=== PATIENT | male | born 1965 | race Caucasian/White ===

== ENCOUNTER 2016-12-10 18:37 | Emergency (ER) | payer MEDICARE ==
[~2016-12-10] VITALS: Ht 185.4 cm; Wt 93.6 kg
[~2016-12-10 18:37] MED LIST: KEPP10002 PO; LAMO150 PO; LORA1TAB12 PO
[2016-12-10 18:38] VITALS: BP 116/75; PULSE 96; RESP 24; TEMP 98.5; O2SAT 99
[2016-12-10] MEDS ORDERED: LORazepam 2 MG/ML VIAL IV PUSH ONE (23:00)
[2016-12-10] MEDS ORDERED: TETANUS/DIPHTHERIA TOXOID ADULT 0.5 ML VIAL IM ONE (23:00)
[2016-12-10] MEDS ORDERED: SODIUM CHLOR 0.9% 1000 ML INJ 1,000 ML IV ONE (23:00)
--- NOTE | 2016-12-10 23:19 | PD ---
HPI Chief Complaint: Injury Time Seen by Provider: 22:43 Travel History International Travel<30 days: No Contact w/Intl Traveler<30days: No Traveled to known affect area: No History of Present Illness HPI The patient is a 51-year-old male who presents to the emergency department for alcohol detoxification right ankle pain. The patient states he has a history of chronic alcohol use, started drinking once again on November 17. The patient states he is followed down several times and struck his head , nose, and chin. He also states he was walking on wet tile and flip flops when he tripped in injured his right lower extremity. The patient has been ambulating on the affected extremity, now notes increasing edema. The patient does note the right foot, right ankle, right lower extremity are swollen and ecchymotic. The patient states he has been through alcohol withdrawal in the past, he would disturb her [facility] (by [facility]), however, they did not have a bed. PFSH Past Medical History Arthritis: Yes Asthma: No Autoimmune Disease: No Blood Disorders: No Anxiety: Yes Depression: Yes Heart Rhythm Problems: No Cancer: No Cardiovascular Problems: Yes High Cholesterol: No Chemotherapy: No Chest Pain: Yes Congestive Heart Failure: No COPD: No Cerebrovascular Accident: No Diabetes: No Diminished Hearing: No Endocrine: No Gastrointestinal Disorders: Yes (CROHN'S DISEASE) GERD: No Genitourinary: No Headaches: Yes Hepatitis: No Hiatal Hernia: No Hypertension: Yes Immune Disorder: No Kidney Stones: No Musculoskeletal: Yes Neurologic: Yes Psychiatric: Yes Reproductive: No Respiratory: No Immunizations Current: Yes Migraines: No Myocardial Infarction: No Radiation Therapy: No Renal Failure: No Seizures: Yes Sleep Apnea: No PNEUMOCCOCAL Vaccine (Year): 2010 Past Surgical History Abdominal Surgery: Yes (INTESTINAL RESECTION X2) AICD: No Appendectomy: Yes Arteriovenous Shunt: No Cholecystectomy: Yes Ear Surgery: No Endocrine Surgery: No Eye Surgery: No Genitourinary Surgery: No Gynecologic Surgery: No Insulin Pump: No Joint Replacement: No Oral Surgery: No Pacemaker: No Thoracic Surgery: No Tonsillectomy: Yes Other Surgery: Yes (gall bladder) Social History Alcohol Use: Yes Tobacco Use: No Substance Use: Yes (States that its always ETOH.) Allergies-Medications (Allergen,Severity, Reaction): Coded Allergies: Iodine (Verified Allergy, Severe, ., 12/10/16) Remicade (Verified Allergy, Severe, 12/10/16) Shellfish (Verified Allergy, Severe, 12/10/16) Reported Meds & Prescriptions Reported Meds & Active Scripts Active Lamictal (Lamotrigine) 150 Mg Tab 150 Mg PO BID Keppra (Levetiracetam) 1,000 Mg Tab 1,000 Mg PO BID Reported Lorazepam 1 Mg Tab 1 Mg PO DAILY PRN Keppra (Levetiracetam) 1,000 Mg Tab 1,000 Mg PO BID Lamictal (Lamotrigine) 150 Mg Tab 150 Mg PO BID Review of Systems Except as stated in HPI: all other systems reviewed are Neg HENT: Positive: Headaches, No: Neck Pain Cardiovascular: No: Chest Pain or Discomfort Respiratory: No: Shortness of Breath Gastrointestinal: No: Nausea, Vomiting, Abdominal Pain Musculoskeletal: No: Edema Neurologic: No: Dizziness Psychiatric: Positive: Substance Abuse (alcohol abuse) Physical Exam Narrative GENERAL: Awake, alert, pleasant 51-year-old male who appears his stated age. SKIN: Focused skin assessment warm/dry. Ecchymosis noted over the chin, nasal bridge, and right lower extremity from the right mid tibia/fibular inferior to the proximal right foot. HEAD: Ecchymosis and contusions noted over the chin, nose, and forehead. EYES: Pupils equal and round. Pupils are 4 mm bilateral reactive. ENT: No nasal bleeding or discharge. Mucous membranes pink and moist. NECK: Trachea midline. No JVD. CARDIOVASCULAR: Regular rate and rhythm. No murmur appreciated. RESPIRATORY: No accessory muscle use. Clear to auscultation. Breath sounds equal bilaterally. GASTROINTESTINAL: Abdomen soft, non-tender, nondistended. No rebound tenderness. MUSCULOSKELETAL: Patient has edema and ecchymosis from the mid to distal one third of the right tibia/fibula down to the proximal right foot with edema of the right foot. Tenderness of the medial malleus. Scar noted on the right upper extremity. Patient is able flex the right hip and right knee. Positive Doppler pulse on the right foot. Patient moves upper extremities without difficulty. NEUROLOGICAL: Awake and alert. No obvious cranial nerve deficits. Motor grossly within normal limits. Normal speech. Nonfocal. Oriented 4. PSYCHIATRIC: Appropriate mood and affect; insight and judgment normal. Data Data Last Documented VS Vital Signs Date Time Temp Pulse Resp B/P Pulse Ox O2 Delivery O2 Flow Rate FiO2 12/10/16 22:40 82 18 93 Room Air 12/10/16 18:38 98.5 116/75 Orders Tibia/Fibula (Ap/Lat) (12/10/16 ) Complete Blood Count With Diff (12/10/16 22:47) Comprehensive Metabolic Panel (12/10/16 22:47) Lorazepam Inj (Ativan Inj) (12/10/16 23:00) Sodium Chlor 0.9% 1000 Ml Inj (Ns 1000 M (12/10/16 23:00) Foot, Limited (2vws) (12/10/16 ) Tetanus/Diphtheria Tox Adult (Tetanus/Di (12/10/16 23:00) Ct Brain W/O Iv Contrast(Rout) (12/10/16 ) Alcohol (Ethanol) (12/10/16 23:19) Us Leg Venous Doppler (12/10/16 ) Clindamycin Inj (Cleocin Inj) (12/11/16 00:45) Labs Laboratory Tests Test 12/10/16 23:00 White Blood Count 9.0 TH/MM3 Red Blood Count 5.88 MIL/MM3 Hemoglobin 11.5 GM/DL Hematocrit 36.3 % Mean Corpuscular Volume 61.7 FL Mean Corpuscular Hemoglobin 19.6 PG Mean Corpuscular Hemoglobin 31.7 % Concent Red Cell Distribution Width 16.5 % Platelet Count 176 TH/MM3 Mean Platelet Volume 8.5 FL Neutrophils (%) (Auto) 75.5 % Lymphocytes (%) (Auto) 16.8 % Monocytes (%) (Auto) 5.3 % Eosinophils (%) (Auto) 1.3 % Basophils (%) (Auto) 1.1 % Neutrophils # (Auto) 6.8 TH/MM3 Lymphocytes # (Auto) 1.5 TH/MM3 Monocytes # (Auto) 0.5 TH/MM3 Eosinophils # (Auto) 0.1 TH/MM3 Basophils # (Auto) 0.1 TH/MM3 CBC Comment AUTO DIFF Sodium Level 140 MEQ/L Potassium Level 4.1 MEQ/L Chloride Level 105 MEQ/L Carbon Dioxide Level 27.0 MEQ/L Anion Gap 8 MEQ/L Blood Urea Nitrogen 6 MG/DL Creatinine 0.74 MG/DL Estimat Glomerular Filtration 111 ML/MIN Rate Random Glucose 73 MG/DL Calcium Level 8.3 MG/DL Total Bilirubin 0.8 MG/DL Aspartate Amino Transf 43 U/L (AST/SGOT) Alanine Aminotransferase 39 U/L (ALT/SGPT) Alkaline Phosphatase 90 U/L Total Protein 7.1 GM/DL Albumin 3.5 GM/DL Ethyl Alcohol Level LESS THAN 3 MG/DL MDM Medical Decision Making Medical Screen Exam Complete: Yes Emergency Medical Condition: Yes Medical Record Reviewed: Yes Interpretation(s) Ultrasound of the leg is negative for DVT, does reveal subcutaneous edema. Last Impressions Tibia/Fibula X-Ray 12/10/16 0000 Signed Impressions: Service Date/Time: Saturday, December 10, 2016 23:27 - CONCLUSION: 1. Soft tissue swelling around the ankle. Drake Ackerman Jr., MD Head CT 12/10/16 0000 Signed Impressions: Service Date/Time: Saturday, December 10, 2016 23:29 - CONCLUSION: 1. No acute intracranial abnormality. 2. Chronic right-sided paranasal sinus disease. Drake Ackerman Jr., MD Foot X-Ray 12/10/16 0000 Signed Impressions: Service Date/Time: Saturday, December 10, 2016 23:27 - CONCLUSION: Unremarkable limited examination of the right foot. Drake Ackerman Jr., MD Laboratory Tests Test 12/10/16 23:00 White Blood Count 9.0 TH/MM3 Red Blood Count 5.88 MIL/MM3 Hemoglobin 11.5 GM/DL Hematocrit 36.3 % Mean Corpuscular Volume 61.7 FL Mean Corpuscular Hemoglobin 19.6 PG Mean Corpuscular Hemoglobin 31.7 % Concent Red Cell Distribution Width 16.5 % Platelet Count 176 TH/MM3 Mean Platelet Volume 8.5 FL Neutrophils (%) (Auto) 75.5 % Lymphocytes (%) (Auto) 16.8 % Monocytes (%) (Auto) 5.3 % Eosinophils (%) (Auto) 1.3 % Basophils (%) (Auto) 1.1 % Neutrophils # (Auto) 6.8 TH/MM3 Lymphocytes # (Auto) 1.5 TH/MM3 Monocytes # (Auto) 0.5 TH/MM3 Eosinophils # (Auto) 0.1 TH/MM3 Basophils # (Auto) 0.1 TH/MM3 CBC Comment AUTO DIFF Sodium Level 140 MEQ/L Potassium Level 4.1 MEQ/L Chloride Level 105 MEQ/L Carbon Dioxide Level 27.0 MEQ/L Anion Gap 8 MEQ/L Blood Urea Nitrogen 6 MG/DL Creatinine 0.74 MG/DL Estimat Glomerular Filtration 111 ML/MIN Rate Random Glucose 73 MG/DL Calcium Level 8.3 MG/DL Total Bilirubin 0.8 MG/DL Aspartate Amino Transf 43 U/L (AST/SGOT) Alanine Aminotransferase 39 U/L (ALT/SGPT) Alkaline Phosphatase 90 U/L Total Protein 7.1 GM/DL Albumin 3.5 GM/DL Ethyl Alcohol Level LESS THAN 3 MG/DL Differential Diagnosis Differential diagnosis includes alcohol withdrawal, alcohol intoxication, hyponatremia, fracture, dislocation, contusion, hematoma, DVT. Narrative Course IV was established, labs are drawn and sent, and the patient was placed on cardiac telemetry monitoring and continuous pulse oximetry monitoring. CT of the brain was obtained. X-ray the right tibia/fibula and right foot were obtained. Patient was administered Ativan 1 mg intravenously and 1 L of IV fluids. CT of the brain is negative for acute hemorrhage. X-rays are negative for fracture. Ultrasound is negative for DVT, does reveal subcutaneous edema. Therefore, patient will be treated for cellulitis with clindamycin. He will also be placed on Librium for alcohol withdrawal. He is advised elevate the leg as needed and a follow-up with a primary physician. Diagnosis Primary Impression: Cellulitis of right leg Additional Impression: Alcohol withdrawal Qualified Code: F10.230 - Alcohol withdrawal, uncomplicated Patient Instructions: General Instructions Additional Instructions: Medications as directed. Elevate right leg. No Ativan while on Librium. Follow-up at [facility]. Follow-up with a primary physician. Stop drinking alcohol. Med/Other Pt SpecificInfo: Prescription(s) given, Med Stopped (do not take Ativan while on Librium) Scripts Chlordiazepoxide 25 Mg Cap25 Mg PO DIRECTED #20 CAP Ref 0 Prov:Jos Dumont MD 12/11/16 Clindamycin (Cleocin)150 Mg Eal305 Mg PO Q6H 10 Days Ref 0 Prov:Jos Dumont MD 12/11/16 Disposition: 01 DISCHARGE HOME Condition: Stable Jos Dumont MD Dec 10, 2016 23:18
[2016-12-10 23:36] LABS: ALKALINE PHOSPHATASE 90 U/L (45-117); ALT (GPT) 39 U/L (12-78); ANION GAP 8 MEQ/L (5-15); AST (GOT) 43 U/L (15-37); BLOOD UREA NITROGEN 6 MG/DL (7-18); CHLORIDE 105 MEQ/L (98-107); GLOMERULAR FILTRATION RATE 111 ML/MIN (>89); POTASSIUM 4.1 MEQ/L (3.5-5.1); SODIUM (NA) 140 MEQ/L (136-145); TOTAL BILIRUBIN ADULT 0.8 MG/DL (0.2-1.0)
[2016-12-10 23:38] LABS: AUTOMATED NEUTROPHIL # 6.8 TH/MM3 (1.8-7.7); BASOPHIL # 0.1 TH/MM3 (0-0.2); BASOPHIL % 1.1 % (0.0-2.0); EOSINOPHIL # 0.1 TH/MM3 (0-0.4); EOSINOPHIL % 1.3 % (0.0-4.0); HEMATOCRIT 36.3 % (39.0-51.0); LYMPH % 16.8 % (9.0-44.0); LYMPHOCYTE # 1.5 TH/MM3 (1.0-4.8); MEAN CELL VOLUME 61.7 FL (80.0-100.0); MEAN CORPUSCULAR HEMOGLOBIN 19.6 PG (27.0-34.0); MEAN CORPUSCULAR HGB CONC 31.7 % (32.0-36.0); MONO % 5.3 % (0.0-8.0); NEUT % 75.5 % (16.0-70.0); PLATELET COUNT 176 TH/MM3 (150-450); RED BLOOD COUNT 5.88 MIL/MM3 (4.50-5.90); RED CELL DISTRIBUTION WIDTH 16.5 % (11.6-17.2)
[2016-12-10 23:49] LABS: HEMO FLAGS AUTO DIFF
--- NOTE | 2016-12-10 23:54 | RADRPT ---
EXAM DATE/TIME: 12/10/2016 23:29 [facility] COMPARISON: CT BRAIN W/O CONTRAST, February 01, 2015, 17:10. INDICATIONS : Detox along with falling one month ago. RADIATION DOSE: 56.35 CTDIvol (mGy) MEDICAL HISTORY : Seizures. Hypertension. SURGICAL HISTORY : None. ENCOUNTER: Initial ACUITY: 1 day PAIN SCALE: 3/10 LOCATION: cranial TECHNIQUE: Multiple contiguous axial images were obtained of the head. Using automated exposure control and adj ustment of the mA and/or kV according to patient size, radiation dose was kept as low as reasonably a chievable to obtain optimal diagnostic quality images. FINDINGS: CEREBRUM: There remains mild prominence of the right lateral ventricle. This is stable from the prior exam. The remaining ventricles are unremarkable. No evidence of midline shift, mass lesion, hemorrhage or acut e infarction. No extra-axial fluid collections are seen. POSTERIOR FOSSA: The cerebellum and brainstem are intact. The 4th ventricle is midline. The cerebellopontine angle i s unremarkable. EXTRACRANIAL: The visualized portion of the orbits is intact. Mucosal thickening is seen involving the right fronta l sinus, right ethmoid air cells, and right maxillary sinus. SKULL: The calvaria is intact. No evidence of skull fracture. CONCLUSION: 1. No acute intracranial abnormality. 2. Chronic right-sided paranasal sinus disease. Drake Ackerman Jr., MD on December 10, 2016 at 23:49 Board Certified Radiologist. This report was verified electronically.
--- NOTE | 2016-12-11 00:05 | RADRPT ---
EXAM DATE/TIME: 12/10/2016 23:27 [facility] COMPARISON: No previous studies available for comparison. INDICATIONS : Pain, swelling, and bruising of the right lower extremity from trauma one week ago MEDICAL HISTORY : None. SURGICAL HISTORY : None. ENCOUNTER: Initial ACUITY: 1 week PAIN SCORE: 8/10 LOCATION: Right leg FINDINGS: Two view examination of the right foot demonstrates no soft tissue swelling, dislocation, or fracture . The calcaneus is intact. Bony mineralization is normal. CONCLUSION: Unremarkable limited examination of the right foot. Drake Ackerman Jr., MD on December 11, 2016 at 0:04 Board Certified Radiologist. This report was verified electronically.
--- NOTE | 2016-12-11 00:05 | RADRPT ---
EXAM DATE/TIME: 12/10/2016 23:27 [facility] COMPARISON: No previous studies available for comparison. INDICATIONS : Pain, swelling, and bruising of the right lower extremity from trauma one week ago. MEDICAL HISTORY : None. SURGICAL HISTORY : None. ENCOUNTER: Initial ACUITY: 1 week PAIN SCORE: 8/10 LOCATION: Right leg FINDINGS: Multiple views of the right lower leg show a medial hemiarthroplasty. There is soft tissue swelling s urrounding the ankle. No fractures or dislocations. No radiopaque foreign bodies. CONCLUSION: 1. Soft tissue swelling around the ankle. Drake Ackerman Jr., MD on December 11, 2016 at 0:02 Board Certified Radiologist. This report was verified electronically.
--- NOTE | 2016-12-11 00:30 | RADRPT ---
EXAM DATE/TIME: 12/10/2016 23:55 [facility] COMPARISON: No previous studies available for comparison. INDICATIONS : Right leg edema and pain. MEDICAL HISTORY : Hypertension. Crohn's disease. Arthritis. Seizures. Head trauma. Chest pain. Depression. Anxiety. Substance use. SURGICAL HISTORY : Tonsillectomy. Appendectomy. Cholecystectomy. Intestinal resection x2. Right knee surgery. Blood tra nsfusions. ENCOUNTER: Initial ACUITY: 2 weeks PAIN SCORE: 10/10 LOCATION: Right leg. TECHNIQUE: Venous ultrasound of the leg was performed from the inguinal ligament to the proximal calf. Real- e, color Doppler and spectral tracing, compression and augmentation techniques were used. FINDINGS: There is normal compressibility of the deep venous system from the inguinal region to the proximal ca lf. No echogenic clot is seen in the lumen of the common femoral, femoral, popliteal, and posterior tibial veins. There is a normal response of the venous system to proximal and distal augmentation an d respiration. Edema is seen within the subcutaneous tissues. CONCLUSION: 1. No DVT. 2. Subcutaneous edema. Drake Ackerman Jr., MD on December 11, 2016 at 0:28 Board Certified Radiologist. This report was verified electronically.
[2016-12-11] MEDS ORDERED: CLIN150 PO (00:39)
[2016-12-11] MEDS ORDERED: CHLO25CA2 PO (00:39)
[2016-12-11] MEDS ORDERED: CLINDAMYCIN INJ 600 MG in SODIUM CHLORIDE 0.9% INJ 100 ML IV ONE (00:45)
[2016-12-11] MEDS ORDERED: KETOROLAC TROMETHAMINE 30 MG/ML (IVP) VIAL IV PUSH ONE (00:45)
[2016-12-11 02:01] LABS: SCAN/DIFF AUTO DIFF CONFIRMED
[2016-12-11 02:02] LABS: ACANTHOCYTES OCC (NORMAL); OVALOCYTES 1+ (NORMAL)
[2016-12-11 02:03] LABS: SPHEROCYTES OCC (NORMAL)
[2016-12-11 05:39] VITALS: BP 135/70; TEMP 98.3
== END 2016-12-11 05:43 | disposition home or self-care (01) ==
LOC: NEPD 18:37
DX: L03.115 Cellulitis of right lower limb (principal); F10.230 Alcohol dependence with withdrawal, uncomplicated; R60.0 Localized edema; I10 Essential (primary) hypertension; Z87.39 Personal history of other diseases of the musculoskeletal system and connective tissue; Z86.59 Personal history of other mental and behavioral disorders; Z86.79 Personal history of other diseases of the circulatory system; Z87.19 Personal history of other diseases of the digestive system; Z86.69 Personal history of other diseases of the nervous system and sense organs; W01.0XXA Fall on same level from slipping, tripping and stumbling without subsequent striking against object, initial encounter
CPT/HCPCS: 70450; 73590; 73620; 80053; 80307; 85025; 90471; 90714; 93971; 96361; 96365; 96366; 96375; 99284; J1885; J2060; J7030

== ENCOUNTER 2017-02-02 03:15 | Emergency (ER) | payer MEDICARE ==
[~2017-02-02] VITALS: Ht 172.7 cm; Wt 85.0 kg
[~2017-02-02 03:15] MED LIST changes: +CHLO25CA2 PO; +CLIN150 PO
[2017-02-02] MEDS ORDERED: SODIUM CHLOR 0.9% 1000 ML INJ 1,000 ML IV SCH (03:22)
[2017-02-02 03:24] VITALS: BP 119/69; PULSE 88; RESP 20; TEMP 98.2; O2SAT 99
--- NOTE | 2017-02-02 03:29 | PD ---
HPI Chief Complaint: Abdominal Pain Time Seen by Provider: 03:18 Travel History International Travel<30 days: No Contact w/Intl Traveler<30days: No Traveled to known affect area: No History of Present Illness HPI The patient is a 51-year-old male who presents emergency department for abdominal pain. The patient was drinking alcohol earlier today, beer, when he developed abdominal pain. The abdominal pain is diffuse, intermittent, sharp , crampy. The patient does have a history of previous Crohn's disease with multiple open laparotomies a previous cholecystectomy and appendectomy. The patient appears intoxicated is a somewhat poor historian, but denies any nausea , vomiting, or change in bowel habits. The patient called EMS earlier today, when EMS arrived they stated the patient was somewhat altered. The patient repetitively says "I'm sorry ". No further information is obtainable from the patient. PFSH Past Medical History Arthritis: Yes Asthma: No Autoimmune Disease: No Blood Disorders: No Anxiety: Yes Depression: Yes Heart Rhythm Problems: No Cancer: No Cardiovascular Problems: Yes High Cholesterol: No Chemotherapy: No Chest Pain: Yes Congestive Heart Failure: No COPD: No Cerebrovascular Accident: No Diabetes: No Diminished Hearing: No Endocrine: No Gastrointestinal Disorders: Yes (CROHN'S DISEASE) GERD: No Genitourinary: No Headaches: Yes Hepatitis: No Hiatal Hernia: No Hypertension: Yes Immune Disorder: No Kidney Stones: No Musculoskeletal: Yes Neurologic: Yes Psychiatric: Yes Reproductive: No Respiratory: No Immunizations Current: Yes Migraines: No Myocardial Infarction: No Radiation Therapy: No Renal Failure: No Seizures: Yes Sleep Apnea: No PNEUMOCCOCAL Vaccine (Year): 2010 Past Surgical History Abdominal Surgery: Yes (INTESTINAL RESECTION X2) AICD: No Appendectomy: Yes Arteriovenous Shunt: No Cholecystectomy: Yes Ear Surgery: No Endocrine Surgery: No Eye Surgery: No Genitourinary Surgery: No Gynecologic Surgery: No Insulin Pump: No Joint Replacement: No Oral Surgery: No Pacemaker: No Thoracic Surgery: No Tonsillectomy: Yes Other Surgery: Yes (gall bladder) Social History Alcohol Use: Yes (DAILY) Tobacco Use: No Substance Use: No Allergies-Medications (Allergen,Severity, Reaction): Coded Allergies: Iodine (Verified Allergy, Severe, ., 02/02/17) Remicade (Verified Allergy, Severe, 02/02/17) Shellfish (Verified Allergy, Severe, 02/02/17) Reported Meds & Prescriptions Reported Meds & Active Scripts Active Chlordiazepoxide (Chlordiazepoxide HCl) 25 Mg Cap 25 Mg PO DIRECTED Cleocin (Clindamycin HCl) 150 Mg Cap 150 Mg PO Q6H 10 Days Lamictal (Lamotrigine) 150 Mg Tab 150 Mg PO BID Keppra (Levetiracetam) 1,000 Mg Tab 1,000 Mg PO BID Reported Lorazepam 1 Mg Tab 1 Mg PO DAILY PRN Keppra (Levetiracetam) 1,000 Mg Tab 1,000 Mg PO BID Lamictal (Lamotrigine) 150 Mg Tab 150 Mg PO BID Review of Systems Except as stated in HPI: all other systems reviewed are Neg General / Constitutional: No: Fever Cardiovascular: No: Chest Pain or Discomfort Respiratory: No: Shortness of Breath Gastrointestinal: Positive: Abdominal Pain, No: Nausea, Vomiting, Diarrhea Genitourinary: No: Dysuria Musculoskeletal: No: Weakness Psychiatric: Positive: Substance Abuse (alcohol abuse) Physical Exam Narrative GENERAL: Awake, alert, 51-year-old male who appears his stated age and appears be intoxicated. SKIN: Focused skin assessment warm/dry. HEAD: Atraumatic. Normocephalic. EYES: Pupils equal and round. No injection. ENT: No nasal bleeding or discharge. Mucous membranes pink and moist. NECK: Trachea midline. No JVD. CARDIOVASCULAR: Regular rate and rhythm. No murmur appreciated. Heart rate in the 90s. RESPIRATORY: No accessory muscle use. Clear to auscultation. Breath sounds equal bilaterally. GASTROINTESTINAL: Abdomen soft, well-healed midline abdominal incisional scar. When patient has attacks of pain and sits upright, it appears he has a large diastases and left hernia. MUSCULOSKELETAL: No obvious deformities. No clubbing. No cyanosis. No edema. NEUROLOGICAL: Awake and alert. No obvious cranial nerve deficits. Motor grossly within normal limits. Normal speech. PSYCHIATRIC: Appears intoxicated. Data Data Last Documented VS Vital Signs Date Time Temp Pulse Resp B/P Pulse Ox O2 Delivery O2 Flow Rate FiO2 02/02/17 03:46 88 20 119/69 99 02/02/17 03:24 98.2 Orders Complete Blood Count With Diff (02/02/17 03:22) Comprehensive Metabolic Panel (02/02/17 03:22) Lipase (02/02/17 03:22) Lactic Acid (02/02/17 03:22) Urinalysis - C+S If Indicated (02/02/17 03:22) Ct Abd/Pel W/O Iv Contrast (02/02/17 03:22) Iv Access Insert/Monitor (02/02/17 03:22) Ecg Monitoring (02/02/17 03:22) Oximetry (02/02/17 03:22) Morphine Inj (Morphine Inj) (02/02/17 03:30) Ondansetron Inj (Zofran Inj) (02/02/17 03:30) Sodium Chlor 0.9% 1000 Ml Inj (Ns 1000 M (02/02/17 03:22) Sodium Chloride 0.9% Flush (Ns Flush) (02/02/17 03:30) Alcohol (Ethanol) (02/02/17 03:22) Acetamin-Hydrocod 325-5 Mg ([place] 5-325 (02/02/17 08:15) Naproxen (Naprosyn) (02/02/17 08:15) Labs Laboratory Tests Test 02/02/17 03:20 White Blood Count 7.8 TH/MM3 Red Blood Count 6.19 MIL/MM3 Hemoglobin 12.0 GM/DL Hematocrit 38.7 % Mean Corpuscular Volume 62.6 FL Mean Corpuscular Hemoglobin 19.4 PG Mean Corpuscular Hemoglobin 31.0 % Concent Red Cell Distribution Width 17.1 % Platelet Count 274 TH/MM3 Mean Platelet Volume 7.7 FL Neutrophils (%) (Auto) 61.6 % Lymphocytes (%) (Auto) 31.1 % Monocytes (%) (Auto) 5.0 % Eosinophils (%) (Auto) 1.4 % Basophils (%) (Auto) 0.9 % Neutrophils # (Auto) 4.8 TH/MM3 Lymphocytes # (Auto) 2.4 TH/MM3 Monocytes # (Auto) 0.4 TH/MM3 Eosinophils # (Auto) 0.1 TH/MM3 Basophils # (Auto) 0.1 TH/MM3 CBC Comment DIFF FINAL Differential Comment Urine Color LIGHT-YELLOW Urine Turbidity CLEAR Urine pH 6.0 Urine Specific [place] 1.003 Urine Protein NEG mg/dL Urine Glucose (UA) NEG mg/dL Urine Ketones NEG mg/dL Urine Occult Blood NEG Urine Nitrite NEG Urine Bilirubin NEG Urine Urobilinogen LESS THAN 2.0 MG/DL Urine Leukocyte Esterase NEG Urine Mucus FEW /lpf Microscopic Urinalysis Comment CULT NOT INDICATED Sodium Level 148 MEQ/L Potassium Level 3.8 MEQ/L Chloride Level 113 MEQ/L Carbon Dioxide Level 23.0 MEQ/L Anion Gap 12 MEQ/L Blood Urea Nitrogen 6 MG/DL Creatinine 0.92 MG/DL Estimat Glomerular Filtration 86 ML/MIN Rate Random Glucose 77 MG/DL Lactic Acid Level 2.4 mmol/L Calcium Level 8.1 MG/DL Total Bilirubin 0.1 MG/DL Aspartate Amino Transf 38 U/L (AST/SGOT) Alanine Aminotransferase 33 U/L (ALT/SGPT) Alkaline Phosphatase 96 U/L Total Protein 7.3 GM/DL Albumin 3.6 GM/DL Lipase 119 U/L Ethyl Alcohol Level 371 MG/DL [facility] Medical Decision Making Medical Screen Exam Complete: Yes Emergency Medical Condition: Yes Medical Record Reviewed: Yes Interpretation(s) Laboratory Tests Test 02/02/17 03:20 White Blood Count 7.8 TH/MM3 Red Blood Count 6.19 MIL/MM3 Hemoglobin 12.0 GM/DL Hematocrit 38.7 % Mean Corpuscular Volume 62.6 FL Mean Corpuscular Hemoglobin 19.4 PG Mean Corpuscular Hemoglobin 31.0 % Concent Red Cell Distribution Width 17.1 % Platelet Count 274 TH/MM3 Mean Platelet Volume 7.7 FL Neutrophils (%) (Auto) 61.6 % Lymphocytes (%) (Auto) 31.1 % Monocytes (%) (Auto) 5.0 % Eosinophils (%) (Auto) 1.4 % Basophils (%) (Auto) 0.9 % Neutrophils # (Auto) 4.8 TH/MM3 Lymphocytes # (Auto) 2.4 TH/MM3 Monocytes # (Auto) 0.4 TH/MM3 Eosinophils # (Auto) 0.1 TH/MM3 Basophils # (Auto) 0.1 TH/MM3 CBC Comment DIFF FINAL Differential Comment Urine Color LIGHT-YELLOW Urine Turbidity CLEAR Urine pH 6.0 Urine Specific [place] 1.003 Urine Protein NEG mg/dL Urine Glucose (UA) NEG mg/dL Urine Ketones NEG mg/dL Urine Occult Blood NEG Urine Nitrite NEG Urine Bilirubin NEG Urine Urobilinogen LESS THAN 2.0 MG/DL Urine Leukocyte Esterase NEG Urine Mucus FEW /lpf Microscopic Urinalysis Comment CULT NOT INDICATED Sodium Level 148 MEQ/L Potassium Level 3.8 MEQ/L Chloride Level 113 MEQ/L Carbon Dioxide Level 23.0 MEQ/L Anion Gap 12 MEQ/L Blood Urea Nitrogen 6 MG/DL Creatinine 0.92 MG/DL Estimat Glomerular Filtration 86 ML/MIN Rate Random Glucose 77 MG/DL Lactic Acid Level 2.4 mmol/L Calcium Level 8.1 MG/DL Total Bilirubin 0.1 MG/DL Aspartate Amino Transf 38 U/L (AST/SGOT) Alanine Aminotransferase 33 U/L (ALT/SGPT) Alkaline Phosphatase 96 U/L Total Protein 7.3 GM/DL Albumin 3.6 GM/DL Lipase 119 U/L Ethyl Alcohol Level 371 MG/DL Last Impressions Abdomen/Pelvis CT 02/02/17 0322 Signed Impressions: Service Date/Time: Thursday, February 02, 2017 04:03 - CONCLUSION: Mild distention of small bowel up to the distal most ileum. Mild mesenteric isatu enlargement. Tristen Abreu MD Differential Diagnosis Differential diagnoses includes pancreatitis, gastritis, peptic ulcer disease, volvulus, partial small bowel obstruction, incarcerated hernia. Narrative Course IV was established, labs are drawn and sent, and the patient was placed on cardiac telemetry monitoring and continuous pulse oximetry monitoring. The patient was assistant professor of business morphine, Zofran, and IV fluids. Lipase was sent to lab. CT of the abdomen and pelvis was ordered. CT the abdomen and pelvis reveals mild distention of small bowel of to the distal most ileum, mild mesenteric isatu enlargement. Lipase is unremarkable. Alcohol level was elevated at 371. She was reevaluated at 5:05 AM, he is resting comfortably, did not appear to have any more abdominal pain. I do not believe the patient has a small bowel obstruction, may have mild distention proximal to the ileocolic anastomosis. Patient should be reevaluated once he is sober, if he has no abdominal pain, the patient be discharged home. Diagnosis Primary Impression: Alcohol intoxication Qualified Code: F10.920 - Alcohol intoxication, uncomplicated Additional Impression: Abdominal pain Qualified Code: R10.84 - Generalized abdominal pain Patient Instructions: General Instructions, Narcotic given in the ED Disposition: DISCHARGE HOME Condition: Stable Jos Dumont MD February 02, 2017 03:29
[2017-02-02] MEDS ORDERED: MORPHINE SULFATE 4 MG/ML INJ IV PUSH ONE (03:30)
[2017-02-02] MEDS ORDERED: ONDANSETRON HCL 4 MG/2 ML VIAL IVP ONE (03:30)
[2017-02-02] MEDS ORDERED: SODIUM CHLORIDE 0.9% FLUSH 10 ML FLUSH IV FLUSH PRN (03:30)
[2017-02-02 03:46] VITALS: BP 119/69; PULSE 88; RESP 20; O2SAT 99
[2017-02-02 03:47] LABS: AUTOMATED NEUTROPHIL # 4.8 TH/MM3 (1.8-7.7); BASOPHIL # 0.1 TH/MM3 (0-0.2); BASOPHIL % 0.9 % (0.0-2.0); EOSINOPHIL # 0.1 TH/MM3 (0-0.4); EOSINOPHIL % 1.4 % (0.0-4.0); HEMATOCRIT 38.7 % (39.0-51.0); HEMO FLAGS DIFF FINAL; LYMPH % 31.1 % (9.0-44.0); LYMPHOCYTE # 2.4 TH/MM3 (1.0-4.8); MEAN CELL VOLUME 62.6 FL (80.0-100.0); MEAN CORPUSCULAR HEMOGLOBIN 19.4 PG (27.0-34.0); NEUT % 61.6 % (16.0-70.0); PLATELET COUNT 274 TH/MM3 (150-450); RED BLOOD COUNT 6.19 MIL/MM3 (4.50-5.90); RED CELL DISTRIBUTION WIDTH 17.1 % (11.6-17.2); WHITE BLOOD COUNT 7.8 TH/MM3 (4.0-11.0)
[2017-02-02 03:49] LABS: BLOOD, URINE NEG (NEG); COMMENT (UR) CULT NOT INDICATED; CULTURE IF INDICATED CULT NOT INDICATED; GLUCOSE,URINE NEG (NEG); KETONE, URINE NEG (NEG); MUCUS URINE FEW /lpf (OCC); NITRITE,URINE NEG (NEG); URINE COLOR LIGHT-YELLOW (YELLW/STRAW)
[2017-02-02 04:13] LABS: ALT (GPT) 33 U/L (12-78); ANION GAP 12 MEQ/L (5-15); AST (GOT) 38 U/L (15-37); BLOOD UREA NITROGEN 6 MG/DL (7-18); CHLORIDE 113 MEQ/L (98-107); GLOMERULAR FILTRATION RATE 86 ML/MIN (>89); POTASSIUM 3.8 MEQ/L (3.5-5.1); SODIUM (NA) 148 MEQ/L (136-145)
[2017-02-02 04:16] LABS: ALKALINE PHOSPHATASE 96 U/L (45-117); TOTAL BILIRUBIN ADULT 0.1 MG/DL (0.2-1.0)
--- NOTE | 2017-02-02 04:56 | RADRPT ---
EXAM DATE/TIME: 02/02/2017 04:03 [facility] COMPARISON: CT ABDOMEN & PELVIS W/O CONTRAST, October 28, 2011, 17:06. INDICATIONS : Abdominal pain and cramping. ORAL CONTRAST: No oral contrast ingested. RADIATION DOSE: 9.34 CTDIvol (mGy) MEDICAL HISTORY : Crohn's disease. Cardiovascular disease Hypertension. SURGICAL HISTORY : Appendectomy. Colon resection.Cholecystectomy. ENCOUNTER: Initial ACUITY: 1 day PAIN SCALE: 7/10 LOCATION: abdomen TECHNIQUE: Volumetric scanning of the abdomen and pelvis was performed. Using automated exposure control and ad justment of the mA and/or kV according to patient size, radiation dose was kept as low as reasonably achievable to obtain optimal diagnostic quality images. FINDINGS: LOWER LUNGS: The visualized lower lungs are clear. LIVER: A low density in the dome of the liver appears to be grossly stable. No evidence of biliary ductal di latation. Gallbladder surgically absent. SPLEEN: Normal size without lesion. PANCREAS: Within normal limits. KIDNEYS: Stable with no evidence of stone, mass or hydronephrosis. ADRENAL GLANDS: Within normal limits. VASCULAR: There is no aortic aneurysm. BOWEL/MESENTERY: Mild nonspecific fluid and gaseous distention of bowel loops up to the distal most ileum with taperin g of the bowel just proximal to the ileocolic anastomosis. Mild mesenteric isatu enlargement ABDOMINAL WALL: Within normal limits. RETROPERITONEUM: There is no lymphadenopathy. BLADDER: No wall thickening or mass. REPRODUCTIVE: Within normal limits. INGUINAL: There is no lymphadenopathy or hernia. MUSCULOSKELETAL: Within normal limits for patient age. CONCLUSION: Mild distention of small bowel up to the distal most ileum. Mild mesenteric isatu enlargement. Tristen Abreu MD on February 02, 2017 at 4:49 Board Certified Radiologist. This report was verified electronically.
--- NOTE | 2017-02-02 08:08 | PD ---
Data Data Last Documented VS Vital Signs Date Time Temp Pulse Resp B/P Pulse Ox O2 Delivery O2 Flow Rate FiO2 02/02/17 03:46 88 20 119/69 99 02/02/17 03:24 98.2 Orders Complete Blood Count With Diff (02/02/17 03:22) Comprehensive Metabolic Panel (02/02/17 03:22) Lipase (02/02/17 03:22) Lactic Acid (02/02/17 03:22) Urinalysis - C+S If Indicated (02/02/17 03:22) Ct Abd/Pel W/O Iv Contrast (02/02/17 03:22) Iv Access Insert/Monitor (02/02/17 03:22) Ecg Monitoring (02/02/17 03:22) Oximetry (02/02/17 03:22) Morphine Inj (Morphine Inj) (02/02/17 03:30) Ondansetron Inj (Zofran Inj) (02/02/17 03:30) Sodium Chlor 0.9% 1000 Ml Inj (Ns 1000 M (02/02/17 03:22) Sodium Chloride 0.9% Flush (Ns Flush) (02/02/17 03:30) Alcohol (Ethanol) (02/02/17 03:22) Labs Laboratory Tests Test 02/02/17 03:20 White Blood Count 7.8 TH/MM3 Red Blood Count 6.19 MIL/MM3 Hemoglobin 12.0 GM/DL Hematocrit 38.7 % Mean Corpuscular Volume 62.6 FL Mean Corpuscular Hemoglobin 19.4 PG Mean Corpuscular Hemoglobin 31.0 % Concent Red Cell Distribution Width 17.1 % Platelet Count 274 TH/MM3 Mean Platelet Volume 7.7 FL Neutrophils (%) (Auto) 61.6 % Lymphocytes (%) (Auto) 31.1 % Monocytes (%) (Auto) 5.0 % Eosinophils (%) (Auto) 1.4 % Basophils (%) (Auto) 0.9 % Neutrophils # (Auto) 4.8 TH/MM3 Lymphocytes # (Auto) 2.4 TH/MM3 Monocytes # (Auto) 0.4 TH/MM3 Eosinophils # (Auto) 0.1 TH/MM3 Basophils # (Auto) 0.1 TH/MM3 CBC Comment DIFF FINAL Differential Comment Urine Color LIGHT-YELLOW Urine Turbidity CLEAR Urine pH 6.0 Urine Specific [employer] 1.003 Urine Protein NEG mg/dL Urine Glucose (UA) NEG mg/dL Urine Ketones NEG mg/dL Urine Occult Blood NEG Urine Nitrite NEG Urine Bilirubin NEG Urine Urobilinogen LESS THAN 2.0 MG/DL Urine Leukocyte Esterase NEG Urine Mucus FEW /lpf Microscopic Urinalysis Comment CULT NOT INDICATED Sodium Level 148 MEQ/L Potassium Level 3.8 MEQ/L Chloride Level 113 MEQ/L Carbon Dioxide Level 23.0 MEQ/L Anion Gap 12 MEQ/L Blood Urea Nitrogen 6 MG/DL Creatinine 0.92 MG/DL Estimat Glomerular Filtration 86 ML/MIN Rate Random Glucose 77 MG/DL Lactic Acid Level 2.4 mmol/L Calcium Level 8.1 MG/DL Total Bilirubin 0.1 MG/DL Aspartate Amino Transf 38 U/L (AST/SGOT) Alanine Aminotransferase 33 U/L (ALT/SGPT) Alkaline Phosphatase 96 U/L Total Protein 7.3 GM/DL Albumin 3.6 GM/DL Lipase 119 U/L Ethyl Alcohol Level 371 MG/DL MDM Supervised Visit with [place]: Yes Narrative Course So 51-year-old man who presents to the emergency department claiming of abdominal pain. To me patient states his neck is been bothering him more, and it was his neck pain that brought him in. He was intoxicated when he came in as well. His a history of Crohn's disease, multiple abdominal surgeries in the past. He has massive ventral hernia. He was signed out to me at the reassess him, especially given his abnormal CT findings of mild distention of the small bowel to the distal most ileum. Labs show: CBC remarkable for mild anemia CMP unremarkable Lactate 2.4 Lipase 119 Alcohol 371 UA unremarkable Repeat exam, 8 AM, approximately 5 hours after his alcohol level. Patient's awake, ambulatory, lucid. He still has some generalized mild abdominal pain. Patient states this is the pedicle for him. He has constant diarrhea. His only complaint now is his neck pain. He states he otherwise has been feeling generally well. FINAL: Patient will be medically cleared for discharge. We'll give him something for his neck. Recommend decrease alcohol intake. Diagnosis Primary Impression: Alcohol intoxication Qualified Code: F10.920 - Alcohol intoxication, uncomplicated Additional Impression: Abdominal pain Qualified Code: R10.84 - Generalized abdominal pain Patient Instructions: General Instructions Additional Instruction: Decrease alcohol use. Follow-up with your primary doctor in the next 2-4 days. Return to the emergency department worsening abdominal pain, vomiting, fevers, or any other new or worsening symptoms. Med/Other Pt SpecificInfo: No Change to Meds Disposition: 01 DISCHARGE HOME Condition: Stable Gen Higginbotham MD February 02, 2017 08:08
[2017-02-02] MEDS ORDERED: NAPROXEN 500 MG TAB PO ONE (08:15)
[2017-02-02] MEDS ORDERED: ACETAMINOPHEN/HYDROcodone 325 MG/5 MG TAB PO ONE (08:15)
== END 2017-02-02 09:05 | disposition home or self-care (01) ==
LOC: NEPC 03:15
DX: F10.120 Alcohol abuse with intoxication, uncomplicated (principal); R10.84 Generalized abdominal pain; K50.90 Crohn's disease, unspecified, without complications; I10 Essential (primary) hypertension
CPT/HCPCS: 74176; 80053; 80307; 81001; 83605; 83690; 85025; 96361; 96374; 99285; J2270; J2405; J7030

== ENCOUNTER 2017-02-09 13:43 | Emergency (ER) | payer MEDICARE ==
[~2017-02-09] VITALS: Ht 180.3 cm; Wt 80.0 kg
[2017-02-09 13:56] VITALS: BP 130/77; PULSE 97; RESP 18; TEMP 97.7; O2SAT 98
[2017-02-09] MEDS ORDERED: SODIUM CHLOR 0.9% 1000 ML INJ 1,000 ML IV SCH (14:11)
[2017-02-09] MEDS ORDERED: THIAMINE INJ 100 MG in SODIUM CHLORIDE 0.9% INJ 100 ML IV ONE (14:15)
--- NOTE | 2017-02-09 14:44 | PD ---
HPI Chief Complaint: Psychiatric Symptoms Time Seen by Provider: 14:43 Travel History International Travel<30 days: No Contact w/Intl Traveler<30days: No Traveled to known affect area: No History of Present Illness HPI 51 yo male that presents to the ED for evaluation of psych by police after being BA. Patient has a history of alcohol abuse and has been using for the past 6 days. History of Chrons and per patient DVT on Eliquis. Apparently not eating or taking care of self. Recent loss of . No chest pain or SOB. Chronic neck or back pain. No abdominal pain. Very depressed and continues to say "I am sorry". States his pain is 8/10 and this is why he drinks. He states no suicidal or homicidal but clearly depressed. History of this in the past last seen late January for alcohol abuse. States that he recently fell and hit his head. Patient does have abrasions to his head. Per patient he did not lose consciousness. Patient does have some bruising on his arms that appears to be chronic. Patient does appear to be clearly intoxicated and he does agree that he did drink a lot of alcohol today. Allergies to iodine. No recent surgeries. He has not seen his doctor for this. Unclear as to what patient takes as he is not a good historian at this time. PFSH Past Medical History Arthritis: Yes Asthma: No Autoimmune Disease: No Blood Disorders: No Anxiety: Yes Depression: Yes Heart Rhythm Problems: No Cancer: No Cardiovascular Problems: Yes High Cholesterol: No Chemotherapy: No Chest Pain: Yes Congestive Heart Failure: No COPD: No Cerebrovascular Accident: No Diabetes: No Diminished Hearing: No Endocrine: No Gastrointestinal Disorders: Yes (CROHN'S DISEASE) GERD: No Genitourinary: No Headaches: Yes Hepatitis: No Hiatal Hernia: No Hypertension: Yes Immune Disorder: No Kidney Stones: No Musculoskeletal: Yes Neurologic: Yes Psychiatric: Yes Reproductive: No Respiratory: No Immunizations Current: Yes Migraines: No Myocardial Infarction: No Radiation Therapy: No Renal Failure: No Seizures: Yes Sleep Apnea: No PNEUMOCCOCAL Vaccine (Year): 2010 Past Surgical History Abdominal Surgery: Yes (INTESTINAL RESECTION X2) AICD: No Appendectomy: Yes Arteriovenous Shunt: No Cholecystectomy: Yes Ear Surgery: No Endocrine Surgery: No Eye Surgery: No Genitourinary Surgery: No Gynecologic Surgery: No Insulin Pump: No Joint Replacement: No Oral Surgery: No Pacemaker: No Thoracic Surgery: No Tonsillectomy: Yes Other Surgery: Yes (gall bladder) Social History Alcohol Use: Yes (DAILY) Tobacco Use: No Substance Use: No Allergies-Medications (Allergen,Severity, Reaction): Coded Allergies: Iodine (Verified Allergy, Severe, ., 02/02/17) Remicade (Verified Allergy, Severe, 02/02/17) Shellfish (Verified Allergy, Severe, 02/02/17) Reported Meds & Prescriptions Reported Meds & Active Scripts Active Chlordiazepoxide (Chlordiazepoxide HCl) 25 Mg Cap 25 Mg PO DIRECTED Cleocin (Clindamycin HCl) 150 Mg Cap 150 Mg PO Q6H 10 Days Lamictal (Lamotrigine) 150 Mg Tab 150 Mg PO BID Keppra (Levetiracetam) 1,000 Mg Tab 1,000 Mg PO BID Reported Lorazepam 1 Mg Tab 1 Mg PO DAILY PRN Keppra (Levetiracetam) 1,000 Mg Tab 1,000 Mg PO BID Lamictal (Lamotrigine) 150 Mg Tab 150 Mg PO BID Review of Systems ROS Limitations: Intoxication, Poor Historian Except as stated in HPI: all other systems reviewed are Neg Physical Exam Exam Limitations: Intoxication, Poor Historian Narrative GENERAL: SKIN: Warm and dry. HEAD: Atraumatic. Normocephalic. Some bruising noted on his forehead EYES: Pupils equal and round 4 mm reactive to light and accommodation. No scleral icterus. No injection or drainage. ENT: No nasal bleeding or discharge. Mucous membranes pink and moist. Tongue is midline. No uvula deviation. NECK: Trachea midline. No JVD. CARDIOVASCULAR: Regular rate and rhythm. No murmurs, S3, S4. RESPIRATORY: No accessory muscle use. Clear to auscultation. Breath sounds equal bilaterally. GASTROINTESTINAL: Abdomen soft, non-tender, nondistended. Hepatic and splenic margins not palpable. Has multiple scars on his abdomen. MUSCULOSKELETAL: Extremities without clubbing, cyanosis, or edema. No obvious deformities. Full range of motion of the upper and lower extremities bilaterally. 2+ pulses bilaterally. NEUROLOGICAL: Awake and alert. No obvious cranial nerve deficits. Motor grossly within normal limits. Five out of 5 muscle strength in the arms and legs. Normal speech. PSYCHIATRIC: Intoxicated and belligerent mood and affect; insight and judgment minimal Data Data Last Documented VS Vital Signs Date Time Temp Pulse Resp B/P Pulse Ox O2 Delivery O2 Flow Rate FiO2 02/09/17 13:56 97.7 97 18 130/77 98 Orders Complete Blood Count With Diff (02/09/17 14:11) Comprehensive Metabolic Panel (02/09/17 14:11) Iv Access Insert/Monitor (02/09/17 14:11) Psych Screen (02/09/17 14:11) Drug Screen, Random Urine (02/09/17 14:11) Alcohol (Ethanol) (02/09/17 14:11) Salicylates (Aspirin) (02/09/17 14:11) Tylenol (Acetaminophen) (02/09/17 14:11) Sodium Chlor 0.9% 1000 Ml Inj (Ns 1000 M (02/09/17 14:11) Thiamine Inj (Thiamine Inj) (02/09/17 14:15) Ct Brain W/O Iv Contrast(Rout) (02/09/17 ) Alcohol Withdrawal Asmt-Ciwa ONCE (02/09/17 17:33) Ondansetron Inj (Zofran Inj) (02/09/17 17:45) Acetaminophen (Tylenol) (02/09/17 17:45) Flumazenil Inj (Romazicon Inj) (02/09/17 17:45) Lorazepam (Ativan) (02/09/17 17:45) Lorazepam Inj (Ativan Inj) (02/09/17 17:45) Lorazepam (Ativan) (02/09/17 17:45) Lorazepam Inj (Ativan Inj) (02/09/17 17:45) Lorazepam Inj (Ativan Inj) (02/09/17 17:45) Lorazepam Inj (Ativan Inj) (02/09/17 17:45) Labs Laboratory Tests Test 02/09/17 02/09/17 15:24 16:37 Urine Opiates Screen NEG Urine Barbiturates Screen NEG Urine Amphetamines Screen NEG Urine Benzodiazepines Screen NEG Urine Cocaine Screen NEG Urine Cannabinoids Screen NEG White Blood Count 9.8 TH/MM3 Red Blood Count 6.14 MIL/MM3 Hemoglobin 12.0 GM/DL Hematocrit 37.3 % Mean Corpuscular Volume 60.7 FL Mean Corpuscular Hemoglobin 19.6 PG Mean Corpuscular Hemoglobin 32.3 % Concent Red Cell Distribution Width 16.5 % Platelet Count 194 TH/MM3 Mean Platelet Volume 8.4 FL Neutrophils (%) (Auto) 78.8 % Lymphocytes (%) (Auto) 18.2 % Monocytes (%) (Auto) 2.2 % Eosinophils (%) (Auto) 0.3 % Basophils (%) (Auto) 0.5 % Neutrophils # (Auto) 7.7 TH/MM3 Lymphocytes # (Auto) 1.8 TH/MM3 Monocytes # (Auto) 0.2 TH/MM3 Eosinophils # (Auto) 0.0 TH/MM3 Basophils # (Auto) 0.1 TH/MM3 CBC Comment DIFF FINAL Differential Comment Sodium Level 143 MEQ/L Potassium Level 3.8 MEQ/L Chloride Level 112 MEQ/L Carbon Dioxide Level 21.5 MEQ/L Anion Gap 10 MEQ/L Blood Urea Nitrogen 5 MG/DL Creatinine 0.88 MG/DL Estimat Glomerular Filtration 91 ML/MIN Rate Random Glucose 101 MG/DL Calcium Level 7.7 MG/DL Total Bilirubin 0.4 MG/DL Aspartate Amino Transf 78 U/L (AST/SGOT) Alanine Aminotransferase 47 U/L (ALT/SGPT) Alkaline Phosphatase 119 U/L Total Protein 6.8 GM/DL Albumin 3.3 GM/DL Salicylates Level LESS THAN 1.7 MG/DL Acetaminophen Level LESS THAN 2.0 MCG/ML Ethyl Alcohol Level 349 MG/DL MDM Medical Decision Making Medical Screen Exam Complete: Yes Emergency Medical Condition: Yes Medical Record Reviewed: Yes Interpretation(s) CBC & BMP Diagram 02/09/17 16:37 LFTS WNL Tox positive for alcohol Last Impressions Head CT 02/09/17 0000 Signed Impressions: Service Date/Time: Thursday, February 09, 2017 14:52 - CONCLUSION: 1. No acute intracranial abnormality. 2. Stable asymmetrical right cerebral atrophy and enlargement of the right lateral ventricle. 3. Improved chronic right paranasal sinusitis. Jeramy Grimes MD Differential Diagnosis Depression versus suicidal ideation versus anxiety versus adjustment disorder versus mood disorder versus bipolar disorder versus schizophrenia versus paranoid disorder versus psychosis versus substance abuse versus alcohol abuse versus alcohol induced psychosis versus homicidality addition versus cutting versus personality disorder versus a injury versus seizures versus alcohol withdrawal Narrative Course 51-year-old male that presents to the ED for evaluation of psych. Patient was properly examined and was found to have signs and symptoms consistent psychiatric illness. Patient was examined and was found to have signs and symptoms consistent appears to be acute alcohol intoxication as well as possible head injury. Patient is very intoxicated. I did review patient's previous note from late January and he had similar presentation. At this time patient was Zuñiga act so labs will be drawn. Head CT will be ordered. Patient was given IV fluids and thiamine. Patient will be medically clear pending labs. Labs and imaging were essentially unremarkable. Patient was medically cleared. Okay to be seen by psych. CIWA was ordered. Mental health screening was discussed with the patient. Diagnosis Primary Impression: Alcohol intoxication Qualified Code: F10.920 - Alcohol intoxication, uncomplicated Additional Impressions: Depression Qualified Code: F32.1 - Moderate single current episode of major depressive disorder Head injury, acute Qualified Code: S09.90XA - Head injury, acute, initial encounter Elia Skaggs Feb 09, 2017 14:44
--- NOTE | 2017-02-09 15:22 | RADRPT ---
EXAM DATE/TIME: 02/09/2017 14:52 [facility] COMPARISON: CT BRAIN W/O CONTRAST, February 01, 2015, 17:10. CT BRAIN W/O CONTRAST, December 10, 2016, 23:29. INDICATIONS : Altered mental status. RADIATION DOSE: 56.35 CTDIvol (mGy) MEDICAL HISTORY : None SURGICAL HISTORY : None. ENCOUNTER: Initial ACUITY: 1 day PAIN SCALE: 5/10 LOCATION: Bilateral head TECHNIQUE: Multiple contiguous axial images were obtained of the head. Using automated exposure control and adj ustment of the mA and/or kV according to patient size, radiation dose was kept as low as reasonably a chievable to obtain optimal diagnostic quality images. FINDINGS: CEREBRUM: There is stable dilation of the right ventricle and asymmetrical right hemispheric atrophy. Remaining ventricles are normal for degree of atrophy. Cho-white matter differentiation is intact. No evidenc e of midline shift, mass lesion, hemorrhage or acute infarction. No extra-axial fluid collections ar e seen. POSTERIOR FOSSA: The cerebellum and brainstem are intact. The 4th ventricle is midline. The cerebellopontine angle i s unremarkable. EXTRACRANIAL: The visualized portion of the orbits is intact. Decreased nuchal partial thickening involving the rig ht ethmoid and maxillary sinuses. Deviation of the nasal septum.SKULL: The calvaria is intact. No evidence of skull fracture. CONCLUSION: 1. No acute intracranial abnormality. 2. Stable asymmetrical right cerebral atrophy and enlargement of the right lateral ventricle. 3. Improved chronic right paranasal sinusitis. Jeramy Grimes MD on February 09, 2017 at 15:14 Board Certified Radiologist. This report was verified electronically.
[2017-02-09 15:46] LABS: AMPHETAMINE, URINE NEG (NEG); BARBITURATES, URINE NEG (NEG); COCAINE, URINE NEG (NEG)
[2017-02-09 16:53] LABS: AUTOMATED NEUTROPHIL # 7.7 TH/MM3 (1.8-7.7); BASOPHIL # 0.1 TH/MM3 (0-0.2); BASOPHIL % 0.5 % (0.0-2.0); EOSINOPHIL % 0.3 % (0.0-4.0); HEMATOCRIT 37.3 % (39.0-51.0); HEMO FLAGS DIFF FINAL; LYMPH % 18.2 % (9.0-44.0); LYMPHOCYTE # 1.8 TH/MM3 (1.0-4.8); MEAN CELL VOLUME 60.7 FL (80.0-100.0); MEAN CORPUSCULAR HEMOGLOBIN 19.6 PG (27.0-34.0); MEAN CORPUSCULAR HGB CONC 32.3 % (32.0-36.0); MONO % 2.2 % (0.0-8.0); NEUT % 78.8 % (16.0-70.0); PLATELET COUNT 194 TH/MM3 (150-450); RED BLOOD COUNT 6.14 MIL/MM3 (4.50-5.90); RED CELL DISTRIBUTION WIDTH 16.5 % (11.6-17.2); WHITE BLOOD COUNT 9.8 TH/MM3 (4.0-11.0)
[2017-02-09 17:15] LABS: ACETAMINOPHEN LESS THAN 2.0 MCG/ML (10.0-30.0); ALKALINE PHOSPHATASE 119 U/L (45-117); TOTAL BILIRUBIN ADULT 0.4 MG/DL (0.2-1.0)
[2017-02-09 17:23] LABS: ALT (GPT) 47 U/L (12-78); ANION GAP 10 MEQ/L (5-15); AST (GOT) 78 U/L (15-37); BICARBONATE 21.5 MEQ/L (21.0-32.0); BLOOD UREA NITROGEN 5 MG/DL (7-18); CHLORIDE 112 MEQ/L (98-107); GLOMERULAR FILTRATION RATE 91 ML/MIN (>89); POTASSIUM 3.8 MEQ/L (3.5-5.1); SODIUM (NA) 143 MEQ/L (136-145)
[2017-02-09] MEDS ORDERED: LORazepam 2 MG/ML VIAL IV PUSH PRN ×4 (17:45)
[2017-02-09] MEDS ORDERED: ONDANSETRON HCL 4 MG/2 ML VIAL IV PUSH PRN (17:45)
[2017-02-09] MEDS ORDERED: FLUMAZENIL 0.5 MG/5 ML VIAL IV PUSH PRN (17:45)
[2017-02-09] MEDS ORDERED: LORazepam 1 MG TAB PO PRN (17:45)
[2017-02-09] MEDS ORDERED: ACETAMINOPHEN 325 MG TAB PO PRN (17:45)
[2017-02-09] MEDS ORDERED: ACETAMINOPHEN 325 MG TAB PO ONE (18:00)
[2017-02-09 18:47] VITALS: BP 145/72; PULSE 98; RESP 18; TEMP 98.2; O2SAT 98
[2017-02-09] MEDS: LORazepam 2 MG TAB PO PRN ×2 (19:30→22:38)
[2017-02-09] MEDS ORDERED: lamoTRIgine 100 MG TAB PO ONE (22:00)
[2017-02-09] MEDS ORDERED: levETIRAcetam 500 MG TAB PO ONE (22:00)
[2017-02-09 22:35] VITALS: BP 160/72; PULSE 115; RESP 19; O2SAT 94
[2017-02-10 02:04] VITALS: BP 121/70; PULSE 97; RESP 20; O2SAT 98
[2017-02-10 03:43] VITALS: BP 133/64; PULSE 92
[2017-02-10 06:00] VITALS: BP 164/79; PULSE 90; RESP 19; O2SAT 96
[2017-02-10] MEDS ORDERED: KEPP10002 PO (07:52)
[2017-02-10] MEDS ORDERED: LAMO150 PO (07:52)
[2017-02-10] MEDS ORDERED: lamoTRIgine 100 MG TAB PO ONE (08:00)
[2017-02-10] MEDS ORDERED: levETIRAcetam 500 MG TAB PO ONE (08:00)
== END 2017-02-10 09:33 ==
LOC: NEPJ 13:43
DX: F10.120 Alcohol abuse with intoxication, uncomplicated (principal); F32.1 Major depressive disorder, single episode, moderate; S09.90XA Unspecified injury of head, initial encounter; W19.XXXA Unspecified fall, initial encounter; Y90.8 Blood alcohol level of 240 mg/100 ml or more; Z79.899 Other long term (current) drug therapy
CPT/HCPCS: 70450; 80053; 80307; 85025; 96365; 96375; 99285; J2405; J3411; J7030

== ENCOUNTER 2017-02-23 08:25 | Inpatient (IN) | payer MEDICARE, MEDICAID ==
[~2017-02-23] VITALS: Ht 185.4 cm; Wt 87.2 kg
[2017-02-23] VITALS (7 sets, daily range): BP systolic 124–146; BP diastolic 66–82; PULSE 93–102; RESP 17–20; TEMP 97.7–99; O2SAT 95–98
[2017-02-23] MEDS ORDERED: APIX2.5T PO (08:43)
[2017-02-23 08:58] LABS: AUTOMATED NEUTROPHIL # 6.7 TH/MM3 (1.8-7.7); BASOPHIL # 0.1 TH/MM3 (0-0.2); BASOPHIL % 1.1 % (0.0-2.0); EOSINOPHIL % 0.2 % (0.0-4.0); HEMATOCRIT 36.2 % (39.0-51.0); HEMO FLAGS DIFF FINAL; LYMPH % 11.9 % (9.0-44.0); MEAN CELL VOLUME 61.5 FL (80.0-100.0); MEAN CORPUSCULAR HEMOGLOBIN 19.7 PG (27.0-34.0); MEAN CORPUSCULAR HGB CONC 32.1 % (32.0-36.0); MONO % 4.8 % (0.0-8.0); PLATELET COUNT 240 TH/MM3 (150-450); RED BLOOD COUNT 5.89 MIL/MM3 (4.50-5.90); RED CELL DISTRIBUTION WIDTH 17.9 % (11.6-17.2); WHITE BLOOD COUNT 8.2 TH/MM3 (4.0-11.0)
[2017-02-23 09:14] LABS: APTT (PATIENT) 27.8 SEC (24.3-30.1); PROTHROMBIN TIME - PATIENT 11.1 SEC (9.8-11.6)
[2017-02-23 09:27] LABS: ANION GAP 14 MEQ/L (5-15); AST (GOT) 70 U/L (15-37); BICARBONATE 18.7 MEQ/L (21.0-32.0); BLOOD UREA NITROGEN 5 MG/DL (7-18); CHLORIDE 107 MEQ/L (98-107); POTASSIUM 3.1 MEQ/L (3.5-5.1); SODIUM (NA) 140 MEQ/L (136-145)
[2017-02-23 09:32] LABS: ALKALINE PHOSPHATASE 121 U/L (45-117); ALT (GPT) 83 U/L (12-78); GLOMERULAR FILTRATION RATE 107 ML/MIN (>89); TOTAL BILIRUBIN ADULT 0.5 MG/DL (0.2-1.0)
[2017-02-23] MEDS ORDERED: SODIUM CHLOR 0.9% 1000 ML INJ 1,000 ML IV ONE (10:00)
[2017-02-23] MEDS ORDERED: cefTRIAXone INJ 1,000 MG in SODIUM CHLORIDE 0.9% INJ 100 ML IV ONE (10:00)
[2017-02-23] MEDS ORDERED: PANTOPRAZOLE INJ 80 MG in SODIUM CHLORIDE 0.9% INJ 35 ML IV ONE (10:00)
[2017-02-23] MEDS ORDERED: ONDANSETRON HCL 4 MG/2 ML VIAL IVP ONE (10:00)
[2017-02-23] MEDS: PANTOPRAZOLE INJ 80 MG in SODIUM CHLORIDE 0.9% INJ 100 ML IV SCH ×2 (10:18→19:31)
--- NOTE | 2017-02-23 10:24 | PD ---
HPI Chief Complaint: Abdominal Pain Time Seen by Provider: 09:37 Travel History International Travel<30 days: No Contact w/Intl Traveler<30days: No Traveled to known affect area: No History of Present Illness HPI 51-year-old male arrives to the ER with complaint of coffee-ground emesis twice this morning. He has a history of Crohn's disease. He drinks alcohol daily, 48 beers he states. He reports recently starting Eloquis. He reports green diarrhea. He reports generalized abdominal pain since yesterday. It states he feels like his stomach is expanding. He denies fever. He follows with Dr. 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 PFSH Past Medical History Arthritis: Yes Asthma: No Autoimmune Disease: No Blood Disorders: No Anxiety: Yes Depression: Yes Heart Rhythm Problems: No Cancer: No Cardiovascular Problems: Yes High Cholesterol: No Chemotherapy: No Chest Pain: Yes Congestive Heart Failure: No COPD: No Cerebrovascular Accident: No Diabetes: No Diminished Hearing: No Endocrine: No Gastrointestinal Disorders: Yes (CROHN'S DISEASE) GERD: No Genitourinary: No Headaches: Yes Hepatitis: No Hiatal Hernia: No Hypertension: Yes Immune Disorder: No Kidney Stones: No Musculoskeletal: Yes Neurologic: Yes Psychiatric: Yes Reproductive: No Respiratory: No Immunizations Current: Yes Migraines: No Myocardial Infarction: No Radiation Therapy: No Renal Failure: No Seizures: Yes Sleep Apnea: No PNEUMOCCOCAL Vaccine (Year): 2010 Past Surgical History Abdominal Surgery: Yes (INTESTINAL RESECTION X2) AICD: No Appendectomy: Yes Arteriovenous Shunt: No Cholecystectomy: Yes Ear Surgery: No Endocrine Surgery: No Eye Surgery: No Genitourinary Surgery: No Gynecologic Surgery: No Insulin Pump: No Joint Replacement: No Oral Surgery: No Pacemaker: No Thoracic Surgery: No Tonsillectomy: Yes Other Surgery: Yes (gall bladder) Social History Alcohol Use: Yes (DAILY) Tobacco Use: No Substance Use: No Allergies-Medications (Allergen,Severity, Reaction): Coded Allergies: Iodine (Verified Allergy, Severe, swelling, 02/23/17) Remicade (Verified Allergy, Severe, itching, 02/23/17) Shellfish (Verified Allergy, Severe, itching, 02/23/17) Reported Meds & Prescriptions Reported Meds & Active Scripts Active Reported Eliquis (Apixaban) 2.5 Mg Tab 2.5 Mg PO BID Lorazepam 1 Mg Tab 1 Mg PO DAILY PRN Keppra (Levetiracetam) 1,000 Mg Tab 1,000 Mg PO BID Lamictal (Lamotrigine) 150 Mg Tab 150 Mg PO BID Review of Systems Except as stated in HPI: all other systems reviewed are Neg Physical Exam Narrative GENERAL: 81-year-old male well-nourished well-developed SKIN: Focused skin assessment warm/dry. HEAD: Atraumatic. Normocephalic. EYES: Pupils equal and round. No scleral icterus. No injection or drainage. ENT: No nasal bleeding or discharge. Mucous membranes pink and moist. NECK: Trachea midline. No JVD. CARDIOVASCULAR: Regular rate and rhythm. No murmur appreciated. RESPIRATORY: No accessory muscle use. Clear to auscultation. Breath sounds equal bilaterally. GASTROINTESTINAL: Reducible abdominal wall hernia. Generalized tenderness nonspecific MUSCULOSKELETAL: No obvious deformities. No clubbing. No cyanosis. No edema. NEUROLOGICAL: Awake and alert. No obvious cranial nerve deficits. Motor grossly within normal limits. Normal speech. PSYCHIATRIC: Appropriate mood and affect; insight and judgment normal. Data Data Last Documented VS Vital Signs Date Time Temp Pulse Resp B/P Pulse Ox O2 Delivery O2 Flow Rate FiO2 02/23/17 09:44 98.1 98 17 140/77 98 Room Air Vital signs reviewed Orders Complete Blood Count With Diff (02/23/17 08:33) Comprehensive Metabolic Panel (02/23/17 08:33) Urinalysis - C+S If Indicated (02/23/17 08:33) Iv Access Insert/Monitor (02/23/17 08:33) Lipase (02/23/17 08:33) Type And Screen (02/23/17 08:33) Lactic Acid (02/23/17 08:33) Act Partial Throm Time (Ptt) (02/23/17 08:36) Prothrombin Time / Inr (Pt) (02/23/17 08:36) Sodium Chlor 0.9% 1000 Ml Inj (Ns 1000 M (02/23/17 10:00) Ondansetron Inj (Zofran Inj) (02/23/17 10:00) Pantoprazole Inj (Protonix Inj) (02/23/17 10:00) Pantoprazole Inj (Protonix Inj) (02/23/17 10:00) Ceftriaxone Inj (Rocephin Inj) (02/23/17 10:00) Admit Order (Ed Use Only) (02/23/17 10:22) Labs Laboratory Tests Test 02/23/17 02/23/17 08:40 08:43 White Blood Count 8.2 TH/MM3 Red Blood Count 5.89 MIL/MM3 Hemoglobin 11.6 GM/DL Hematocrit 36.2 % Mean Corpuscular Volume 61.5 FL Mean Corpuscular Hemoglobin 19.7 PG Mean Corpuscular Hemoglobin 32.1 % Concent Red Cell Distribution Width 17.9 % Platelet Count 240 TH/MM3 Mean Platelet Volume 7.5 FL Neutrophils (%) (Auto) 82.0 % Lymphocytes (%) (Auto) 11.9 % Monocytes (%) (Auto) 4.8 % Eosinophils (%) (Auto) 0.2 % Basophils (%) (Auto) 1.1 % Neutrophils # (Auto) 6.7 TH/MM3 Lymphocytes # (Auto) 1.0 TH/MM3 Monocytes # (Auto) 0.4 TH/MM3 Eosinophils # (Auto) 0.0 TH/MM3 Basophils # (Auto) 0.1 TH/MM3 CBC Comment DIFF FINAL Differential Comment Prothrombin Time 11.1 SEC Prothromb Time International 1.0 RATIO Ratio Activated Partial 27.8 SEC Thromboplast Time Sodium Level 140 MEQ/L Potassium Level 3.1 MEQ/L Chloride Level 107 MEQ/L Carbon Dioxide Level 18.7 MEQ/L Anion Gap 14 MEQ/L Blood Urea Nitrogen 5 MG/DL Creatinine 0.76 MG/DL Estimat Glomerular Filtration 107 ML/MIN Rate Random Glucose 101 MG/DL Calcium Level 8.1 MG/DL Total Bilirubin 0.5 MG/DL Aspartate Amino Transf 70 U/L (AST/SGOT) Alanine Aminotransferase 83 U/L (ALT/SGPT) Alkaline Phosphatase 121 U/L Total Protein 6.6 GM/DL Albumin 3.4 GM/DL Lipase 120 U/L Blood Type O POSITIVE Antibody Screen NEGATIVE Lactic Acid Level 3.5 mmol/L [facility] Medical Decision Making Medical Screen Exam Complete: Yes Emergency Medical Condition: Yes Medical Record Reviewed: Yes Differential Diagnosis CBC & BMP Diagram 02/23/17 08:40 Narrative Course CBC & BMP Diagram 02/23/17 08:40 AST 70 ALT 83 Alk phos 121 Tn < 0.02 Lipase 120 LA 3.5 INR 1.0 Admission for serial CBCs. Gastroenterology consultation placed. Protonix given along with Rocephin. Discussed with Dr. Nina. Diagnosis Primary Impression: Abdominal pain Qualified Code: R10.9 - Abdominal pain, unspecified location Additional Impression: Hematemesis Qualified Code: K92.0 - Hematemesis with nausea Admitting Information Admitting Physician Requests: Admit Chay Pierce MD Feb 23, 2017 10:24
[2017-02-23] MEDS ORDERED: LORazepam 2 MG/ML VIAL IV PUSH ONE ×2 (10:30→10:45)
[2017-02-23] MEDS ORDERED: FLUMAZENIL 0.5 MG/5 ML VIAL IV PUSH PRN (10:45)
[2017-02-23] MEDS ORDERED: SODIUM CHLORIDE 0.9% FLUSH 10 ML FLUSH IV FLUSH PRN (10:45)
[2017-02-23] MEDS ORDERED: NALOXONE HCL 0.4 MG/ML AMP IV PRN (10:45)
[2017-02-23] MEDS ORDERED: POTASSIUM CHLORIDE 10 MEQ CONTROLLED RELEASE TAB PO ONE (10:45)
[2017-02-23] MEDS ORDERED: ONDANSETRON HCL 4 MG/2 ML VIAL IVP PRN (10:45)
[2017-02-23] MEDS ORDERED: LORazepam 2 MG/ML VIAL IV PUSH PRN ×3 (10:45)
[2017-02-23] MEDS ORDERED: PILL SPLITTER OTHER PRN (11:00)
--- NOTE | 2017-02-23 11:13 | HHI.HP ---
[facility] Service Family Medicine Primary Care Physician Tristen Monk M.D. Admission Diagnosis Hematemasis Diagnoses: International Travel<30 Days: No Contact w/Intl Traveler<30days: No Known Affected Area: No History of Present Illness 51 year old male with severe alcoholism and suspected upper GI bleed. He relapsed on alcohol one month ago and is up to 48 beers per day. He had one episode of black vomitus and has black stools for the past couple weeks. He had about a cup worth of black emesis. He feels nauseous currently but has not vomited again. He has moderate epigastric pain. He has tremors and diaphoresis but no hallucinations. His last drink was yesterday. He reports a history of seizures possibly due to alcohol withdrawal and takes Lamictal and Keppra. His last seizure was two weeks ago. He currently feels mildly lightheaded. He feels chest pressure since earlier today. He has dyspnea on exertion. No blurry vision , focal deficits, calf swelling or tenderness. (Patrick Nina MD R2) Review of Systems Constitutional: COMPLAINS OF: Diaphoretic episodes, Change in appetite, DENIES : Fever, Weight gain, Chills Endocrine: DENIES: Polyuria, Polyphagia Eyes: DENIES: Double Vision Ears, nose, mouth, throat: DENIES: Throat pain, Running Nose, Epistaxis, Odynophagia Respiratory: DENIES: Cough, Hemoptysis, Shortness of breath Cardiovascular: COMPLAINS OF: Chest pain, Dyspnea on Exertion, DENIES: Syncope , Lower Extremity Edema, Orthopnea Gastrointestinal: COMPLAINS OF: Abdominal pain, Black stools, Nausea, Vomiting , DENIES: Constipation, Diarrhea Musculoskeletal: COMPLAINS OF: Back pain, DENIES: Joint pain, Stiffness Integumentary: DENIES: Rash Hematologic/lymphatic: DENIES: Lymphadenopathy Neurologic: COMPLAINS OF: Headache, Tremor, DENIES: Localized weakness, Paresthesias, Poor Balance Psychiatric: DENIES: Anxiety, Mood changes, Depression, Hallucinations, Agitation (Patrick Nina MD R2) Past Family Social History Past Medical History Severe alcoholism (48 beers per day currently) Crohn's disease DVT one month ago, on Eliquis at home Past Surgical History Left foot, right knee Multiple intestinal resections for Crohn's disease Cholecystectomy Appendectomy? Reported Medications Reported Meds & Active Scripts Active Reported Eliquis (Apixaban) 2.5 Mg Tab 2.5 Mg PO BID Lorazepam 1 Mg Tab 1 Mg PO DAILY PRN Keppra (Levetiracetam) 1,000 Mg Tab 1,000 Mg PO BID Lamictal (Lamotrigine) 150 Mg Tab 150 Mg PO BID (Patrick Nina MD R2) Allergies: Coded Allergies: Iodine (Verified Allergy, Severe, swelling, 02/23/17) Remicade (Verified Allergy, Severe, itching, 02/23/17) Shellfish (Verified Allergy, Severe, itching, 02/23/17) Active Ordered Medications Inpatient Medications Ceftriaxone Sodium/Sodium Chloride (Rocephin Inj/NS Inj) 100 ml @ 200 mls/hr ONCE ONCE IV Last administered on 02/23/17 09:56; Start 02/23/17 at 10:00; Stop 02/23/17 at 10:29; Status DC Flumazenil (Romazicon Inj) 0.2 mg Q1M PRN IV PUSH SEE LABEL COMMENTS; Start at 10:45; Status UNV Lamotrigine (LaMICtal) 150 mg BID PO ; Start 02/23/17 at 21:00 Levetriacetam (Keppra) 1,000 mg BID PO ; Start 02/23/17 at 21:00 Lorazepam (Ativan Inj) 1 mg ONCE ONCE IV PUSH Last administered on 02/23/17 10:32; Start 02/23/17 at 10:30; Stop 02/23/17 at 10:31; Status DC Lorazepam (Ativan) 1 mg Q4H PRN PO CIWA 8 - 10; Start 02/23/17 at 10:45; Status UNV Miscellaneous 1 ea 1 ea UNSCH PRN OTHER SEE LABEL COMMENTS; Start 02/23/17 at 11:00 Naloxone HCl (Narcan Inj) 0.4 mg UNSCH PRN IV SEE LABEL COMMENTS; Start at 10:45; Status UNV Ondansetron HCl (Zofran Inj) 4 mg Q6H PRN IVP NAUSEA OR VOMITING; Start at 10:45; Status UNV Ondansetron HCl 4 mg 4 mg ONCE ONCE IVP Last administered on 02/23/17 09:57; Start 02/23/17 at 10:00; Stop 02/23/17 at 10:01; Status DC Pantoprazole Sodium 80 mg/ Sodium Chloride 100 ml @ 10 mls/hr Q10H IV Last administered on 02/23/17t 10:18; Start 02/23/17 at 10:00 Sodium Chloride (NS 1000 ml Inj) 1,000 ml @ 140 mls/hr Q7H9M IV ; Start at 10:43; Status UNV Sodium Chloride (NS Flush) 2 ml BID IV FLUSH ; Start 02/23/17 at 10:45; Status UNV Family History Father with diabetes Social History Lives alone On disability Not a smoker No drug use up to 48 beers per day currently (Patrick Nina MD R2) Physical Exam Vital Signs Vital Signs Date Time Temp Pulse Resp B/P Pulse Ox O2 Delivery O2 Flow Rate FiO2 02/23/17 09:44 98.1 98 17 140/77 98 Room Air 02/23/17 09:44 17 02/23/17 08:38 98.7 102 20 133/82 97 Physical Exam GENERAL: Disheveled, tremulous, awake, alert, having moderate pain SKIN: No rashes, ecchymoses or lesions. HEAD: Atraumatic. Normocephalic. No temporal or scalp tenderness. EYES: Pupils equal round and reactive. Extraocular motions intact. No scleral icterus. No injection or drainage. ENT: Nose without bleeding, purulent drainage or septal hematoma. Throat without erythema, tonsillar hypertrophy or exudate. Uvula midline. Airway patent. NECK: Trachea midline. No JVD or lymphadenopathy. Supple, nontender, no meningeal signs. CARDIOVASCULAR: Regular rate and rhythm without murmurs, gallops, or rubs. RESPIRATORY: Clear to auscultation. Breath sounds equal bilaterally. No wheezes , rales, or rhonchi. GASTROINTESTINAL: Significant abdominal hernias from prior incisions, voluntary guarding, no rebound tenderness, soft, tender mostly in epigastric region MUSCULOSKELETAL: Extremities without clubbing, cyanosis, or edema. No joint tenderness, effusion, or edema noted. No calf tenderness. Negative Homans sign bilaterally. NEUROLOGICAL: Awake and alert. Cranial nerves II through XII intact. Motor and sensory grossly within normal limits. Five out of 5 muscle strength in all muscle groups. Normal speech. Laboratory Laboratory Tests Test 02/23/17 02/23/17 08:40 08:43 White Blood Count 8.2 Red Blood Count 5.89 Hemoglobin 11.6 Hematocrit 36.2 Mean Corpuscular Volume 61.5 Mean Corpuscular Hemoglobin 19.7 Mean Corpuscular Hemoglobin 32.1 Concent Red Cell Distribution Width 17.9 Platelet Count 240 Mean Platelet Volume 7.5 Neutrophils (%) (Auto) 82.0 Lymphocytes (%) (Auto) 11.9 Monocytes (%) (Auto) 4.8 Eosinophils (%) (Auto) 0.2 Basophils (%) (Auto) 1.1 Neutrophils # (Auto) 6.7 Lymphocytes # (Auto) 1.0 Monocytes # (Auto) 0.4 Eosinophils # (Auto) 0.0 Basophils # (Auto) 0.1 CBC Comment DIFF FINAL Differential Comment Prothrombin Time 11.1 Prothromb Time International 1.0 Ratio Activated Partial 27.8 Thromboplast Time Sodium Level 140 Potassium Level 3.1 Chloride Level 107 Carbon Dioxide Level 18.7 Anion Gap 14 Blood Urea Nitrogen 5 Creatinine 0.76 Estimat Glomerular Filtration 107 Rate Random Glucose 101 Calcium Level 8.1 Total Bilirubin 0.5 Aspartate Amino Transf 70 (AST/SGOT) Alanine Aminotransferase 83 (ALT/SGPT) Alkaline Phosphatase 121 Total Protein 6.6 Albumin 3.4 Lipase 120 Blood Type O POSITIVE Antibody Screen NEGATIVE Lactic Acid Level 3.5 (Patrick Nina MD R2) Result Diagram: 02/23/17 0840 02/23/17 0840 Septic Shock Reassessment Heart: Other (tachycardic) Lungs: Clear Skin: Warm Capillary Refill: <2 seconds (Patrick Nina MD R2) Assessment and Plan Assessment and Plan 51 year old male with severe alcoholism and suspected upper GI bleed. Code Status FULL CODE Discussed Condition With Dr. Jamarcus Adkins (Patrick Nina MD R2) Attending Attestation Patient seen and examined. Case reviewed and discussed with the resident team. Agree with plan of care as discussed with me and documented in the resident note. pt seen in room and given ativan at that time as he was hypertensive, tachycardic and tremulous. he wants to quit drinking and has help from AA. ( Maria Esther Jeff MD) Problem List: (1) Upper GI bleed Status: Acute Plan: Had one episode of hematemesis with black vomitus. History of severe alcoholism. DDx: varices, perforation, gastritis, gastric ulcer - Consult GI - Serial H&H - IV Protonix - Fluid resuscitation - Monitor vitals - O2 supplementation as needed - Hemoccult test (2) Alcohol withdrawal Status: Acute Plan: 48 beers per day, history of alcohol abuse with recent relapse. Longest period sober was 9 months. Was going to [employer] meetings. Currently tremulous, no significant agitation, no hallucinations, mildly diaphoretic. - CIWA protocol - Benzodiazepines PRN depending on CIWA scores - Multivitamin, thiamine, folic acid - Continue home seizure medications - Alcohol abuse counseling - Case management consult - Refer for outpatient rehabilitation (3) Chest pain Status: Acute Plan: Chest pain in context of acute GI bleed. - Trend troponin, EKG's - Continuous telemetry - Chest x-ray (4) Seizure disorder Status: Chronic Plan: - Continue Keppra, Lamictal from home - Check Keppra, Lamictal levels - Seizure precautions (5) Contraindication to anticoagulation therapy Status: Acute Plan: Active GI bleed Bilateral SCD's Has history of DVT, on Eliquis at home (6) Nutrition, metabolism, and development symptoms Status: Acute Plan: - IVF normal saline at maintenance - Replace potassium - Monitor electrolytes - Check mg/phos - NPO in case of EGD (Patrick Nina MD R2) Physician Certification 2 Midnight Certification Type: Admission for Inpatient Services Order for Inpatient Services The services are ordered in accordance with Medicare regulations or non- Medicare payer requirements, as applicable. In the case of services not specified as inpatient-only, they are appropriately provided as inpatient services in accordance with the 2-midnight benchmark. Estimated LOS (days): 3 days is the estimated time the patient will need to remain in the hospital, assuming treatment plan goals are met and no additional complications. Post-Hospital Plan: Home (Patrick Nina MD R2) Problem Qualifiers (1) Alcohol withdrawal: Qualified Code: F10.232 - Alcohol withdrawal, with perceptual disturbance (2) Chest pain: Qualified Code: R07.9 - Chest pain, unspecified type Patrick Nina MD R2 Feb 23, 2017 11:13 Maria Esther Jeff MD Feb 24, 2017 13:51
[2017-02-23] MEDS ORDERED: MORPHINE SULFATE 8 MG/ML INJ IV PUSH ONE (11:15)
[2017-02-23] MEDS: SODIUM CHLOR 0.9% 1000 ML INJ 1,000 ML IV SCH ×2 (11:18→17:52)
[2017-02-23] MEDS: SODIUM CHLORIDE 0.9% FLUSH 10 ML FLUSH IV FLUSH SCH ×2 (11:18→20:53)
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
--- NOTE | 2017-02-23 11:59 | RADRPT ---
EXAM DATE/TIME: 02/23/2017 11:28 [facility] COMPARISON: No previous studies available for comparison. INDICATIONS : Chest pain today. MEDICAL HISTORY : None. SURGICAL HISTORY : Appendectomy. Cholecystectomy. ENCOUNTER: Initial ACUITY: 1 day PAIN SCORE: 9/10 LOCATION: Bilateral chest FINDINGS: Minimal left basilar linear opacities consistent with atelectasis. Lungs are otherwise clear. Cardio mediastinal contours are within normal limits. Bony thorax is intact. CONCLUSION: 1. Minimal left basilar atelectasis. Jeramy Grimes MD on February 23, 2017 at 11:56 Board Certified Radiologist. This report was verified electronically.
[2017-02-23] MEDS: THIAMINE INJ 100 MG in SODIUM CHLORIDE 0.9% INJ 100 ML IV SCH (12:10)
[2017-02-23] MEDS: MULTIVITAMIN INJ 10 ML, FOLIC ACID INJ 1 MG in SODIUM CHLORID 0.9% 500 ML INJ 500 ML IV SCH (12:10)
[2017-02-23] MEDS ORDERED: HYDROmorphone HCL 2 MG TAB PO PRN (12:15)
[2017-02-23] MEDS ORDERED: ACETAMINOPHEN 325 MG TAB PO PRN (12:15)
[2017-02-23 13:41] LABS: MAGNESIUM 1.8 MG/DL (1.5-2.5)
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
[2017-02-23 15:11] LABS: REVIEW FLAG FINAL
[2017-02-23] MEDS: HYDROmorphone HCL 2 MG TAB PO PRN ×3 (15:26→23:10)
[2017-02-23 15:32] LABS: BLOOD, URINE NEG (NEG); COMMENT (UR) CULT NOT INDICATED; CULTURE IF INDICATED CULT NOT INDICATED; GLUCOSE,URINE NEG (NEG); KETONE, URINE 10 mg/dL (NEG); MUCUS URINE FEW /lpf (OCC); NITRITE,URINE NEG (NEG); SQUAMOUS EPITHELIAL CELL URINE <1 /hpf (0-5); URINE COLOR YELLOW (YELLW/STRAW)
[2017-02-23] MEDS: LORazepam 2 MG/ML VIAL IV PUSH PRN (18:51)
[2017-02-23] MEDS: levETIRAcetam 500 MG TAB PO SCH (20:50)
[2017-02-23] MEDS: lamoTRIgine 100 MG TAB PO SCH (20:50)
[2017-02-23] MEDS: LORazepam 1 MG TAB PO PRN (20:51)
[2017-02-23 21:38] LABS: HEMATOCRIT 33.6 % (39.0-51.0); REVIEW FLAG FINAL
[2017-02-24] VITALS (11 sets, daily range): BP systolic 133–149; BP diastolic 62–84; PULSE 85–101; RESP 16–20; TEMP 97.6–98.2; O2SAT 97–100
[2017-02-24] MEDS: SODIUM CHLOR 0.9% 1000 ML INJ 1,000 ML IV SCH ×4 (00:18→20:31)
[2017-02-24] MEDS: LORazepam 1 MG TAB PO PRN ×2 (00:58→05:01)
[2017-02-24] MEDS: HYDROmorphone HCL 2 MG TAB PO PRN ×5 (03:12→20:30)
[2017-02-24 04:32] LABS: AUTOMATED NEUTROPHIL # 2.9 TH/MM3 (1.8-7.7); BASOPHIL % 0.9 % (0.0-2.0); EOSINOPHIL % 0.9 % (0.0-4.0); HEMATOCRIT 31.5 % (39.0-51.0); HEMO FLAGS DIFF FINAL; LYMPHOCYTE # 0.8 TH/MM3 (1.0-4.8); MEAN CELL VOLUME 62.5 FL (80.0-100.0); MEAN CORPUSCULAR HEMOGLOBIN 19.3 PG (27.0-34.0); MEAN CORPUSCULAR HGB CONC 30.9 % (32.0-36.0); NEUT % 72.2 % (16.0-70.0); PLATELET COUNT 152 TH/MM3 (150-450); RED BLOOD COUNT 5.04 MIL/MM3 (4.50-5.90); RED CELL DISTRIBUTION WIDTH 17.5 % (11.6-17.2)
[2017-02-24] MEDS: PANTOPRAZOLE INJ 80 MG in SODIUM CHLORIDE 0.9% INJ 100 ML IV SCH ×2 (05:01→16:00)
[2017-02-24 05:15] LABS: BICARBONATE 26.4 MEQ/L (21.0-32.0); TOTAL BILIRUBIN ADULT 1.3 MG/DL (0.2-1.0)
[2017-02-24 05:17] LABS: POTASSIUM 3.3 MEQ/L (3.5-5.1)
[2017-02-24] MEDS: LORazepam 2 MG TAB PO PRN ×4 (08:42→23:58)
[2017-02-24] MEDS ORDERED: LACTATED RINGER'S 1,000 ML BAG IV ONE (08:50)
[2017-02-24] MEDS: lamoTRIgine 100 MG TAB PO SCH ×2 (09:00→20:28)
[2017-02-24] MEDS: SODIUM CHLORIDE 0.9% FLUSH 10 ML FLUSH IV FLUSH SCH ×2 (09:00→16:45)
[2017-02-24] MEDS: levETIRAcetam 500 MG TAB PO SCH ×2 (09:00→20:29)
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
[2017-02-24] MEDS ORDERED: PROPOFOL 200 MG/20 ML AMP IV PUSH ONE (09:51)
--- NOTE | 2017-02-24 09:57 | HHI.GIFU ---
Subjective Remarks Immediate postop note: EGD with biopsy Indication: Hematemesis Meds: MAC Findings: Esophagus: normal, Stomach: mild gastritis. Bx x 2. Duodenum: normal Objective Vitals I&O Vital Signs Date Time Temp Pulse Resp B/P Pulse Ox O2 Delivery O2 Flow Rate FiO2 02/24/17 09:39 97 21 02/24/17 08:41 97.7 88 18 138/72 98 02/24/17 08:40 97.7 88 18 138/72 98 02/24/17 04:24 98.2 88 18 147/81 98 02/24/17 04:00 Room Air 02/24/17 03:54 96 02/24/17 00:00 98.1 94 18 138/78 97 02/24/17 00:00 Room Air 02/23/17 20:00 98.6 95 20 137/77 95 02/23/17 20:00 Room Air 02/23/17 16:22 99.0 101 19 146/66 96 02/23/17 13:14 98.4 93 18 125/69 98 02/23/17 12:23 97.7 81 17 124/68 99 02/23/17 11:30 17 02/23/17 11:20 98 21 I/O 02/23/17 02/23/17 02/23/17 02/24/17 02/24/17 02/24/17 07:00 15:00 23:00 07:00 15:00 23:00 Intake Total 0 ml 1652 ml Output Total 200 ml 150 ml 200 ml Balance -200 ml -150 ml 1452 ml Intake Oral 0 ml 240 ml IV Total 1412 ml Output Urine Total 200 ml 150 ml 200 ml # Bowel Movements 0 0 2 Laboratory Laboratory Tests Test 02/23/17 02/23/17 02/23/17 02/23/17 11:00 14:22 15:00 19:40 Phosphorus Level 1.5 Magnesium Level 1.8 Troponin I LESS THAN 0.02 LESS THAN 0.02 Hemoglobin 10.1 Hematocrit 32.0 Urine Color YELLOW Urine Turbidity CLEAR Urine pH 6.0 Urine Specific [place] 1.014 Urine Protein TRACE Urine Glucose (UA) NEG Urine Ketones 10 Urine Occult Blood NEG Urine Nitrite NEG Urine Bilirubin NEG Urine Urobilinogen LESS THAN 2.0 Urine Leukocyte Esterase NEG Urine RBC LESS THAN 1 Urine WBC 2 Urine Squamous Epithelial <1 Cells Urine Mucus FEW Microscopic Urinalysis Comment CULT NOT INDICATED Lactic Acid Level 1.3 Test 02/23/17 02/24/17 02/24/17 19:41 03:20 03:44 Hemoglobin 10.2 9.7 Hematocrit 33.6 31.5 Sodium Level 143 Potassium Level 3.3 Chloride Level 109 Carbon Dioxide Level 26.4 Anion Gap 8 Blood Urea Nitrogen 4 Creatinine 0.65 Estimat Glomerular Filtration 129 Rate Random Glucose 69 Calcium Level 7.1 Protein Corrected Calcium 8.0 Total Bilirubin 1.3 Aspartate Amino Transf 49 (AST/SGOT) Alanine Aminotransferase 56 (ALT/SGPT) Alkaline Phosphatase 94 Total Protein 5.4 Albumin 2.7 White Blood Count 4.0 Red Blood Count 5.04 Mean Corpuscular Volume 62.5 Mean Corpuscular Hemoglobin 19.3 Mean Corpuscular Hemoglobin 30.9 Concent Red Cell Distribution Width 17.5 Platelet Count 152 Mean Platelet Volume 7.9 Neutrophils (%) (Auto) 72.2 Lymphocytes (%) (Auto) 20.0 Monocytes (%) (Auto) 6.0 Eosinophils (%) (Auto) 0.9 Basophils (%) (Auto) 0.9 Neutrophils # (Auto) 2.9 Lymphocytes # (Auto) 0.8 Monocytes # (Auto) 0.2 Eosinophils # (Auto) 0.0 Basophils # (Auto) 0.0 CBC Comment DIFF FINAL Differential Comment Physical Exam HEENT: Pupils round and reactive to light; normocephalic; atraumatic; no jaundice. Throat is clear. NECK: Neck is supple, no JVD, no lymphadenopathy. CHEST: Chest is clear to auscultation and percussion. CARDIAC: Regular rate and rhythm with no murmur gallop or rubs. ABDOMEN: Soft, bowel sounds are present in all four quadrants. EXTREMITIES: No clubbing, cyanosis, or edema. SKIN: Normal; no rash; no jaundice. CRAYON PAINTER: No focal deficits; alert and oriented times three. Assessment and Plan Plan Assessment: - Hematemesis, minor. Not hemodynamically significant. - Acute and chronic alcoholism - Crohns disease on no medication at present. - Abdominal hernia - 02/24 EGD with biopsy showed gastritis. Rec: - regular diet as tolerated - withdrawal observation and treatment - will follow Rohan Jane MD Feb 24, 2017 09:57
[2017-02-24] MEDS: THIAMINE INJ 100 MG in SODIUM CHLORIDE 0.9% INJ 100 ML IV SCH (12:17)
[2017-02-24] MEDS: MULTIVITAMIN INJ 10 ML, FOLIC ACID INJ 1 MG in SODIUM CHLORID 0.9% 500 ML INJ 500 ML IV SCH (12:17)
[2017-02-24 12:38] LABS: HEMATOCRIT 35.2 % (39.0-51.0); REVIEW FLAG FINAL
[2017-02-24 13:21] LABS: LEVETIRACETAM 15.5 mcg/mL (12.0 - 46.0)
[2017-02-24 14:35] LABS: HEMATOCRIT 34.4 % (39.0-51.0); REVIEW FLAG FINAL
[2017-02-24] MEDS ORDERED: chlordiazePOXIDE 25 MG CAP PO ONE ×2 (15:00→21:00)
--- NOTE | 2017-02-24 16:55 | EKG ---
Date Performed: 02/23/2017 Time Performed: 22:27:53 PTAGE: 51 years EKG: Sinus rhythm Since previous tracing, no significant change noted NORMAL ECG PREVIOUS TRACING : 02/23/2017 17.15 DOCTOR: Sherry Collins Interpretating Date/Time 02/24/2017 17:35:16
--- NOTE | 2017-02-24 16:55 | EKG ---
Date Performed: 02/23/2017 Time Performed: 17:15:29 PTAGE: 51 years EKG: Sinus rhythm Since previous tracing, no significant change noted NORMAL ECG PREVIOUS TRACING : 02/23/2017 11.54 DOCTOR: Sherry Collins Interpretating Date/Time 02/24/2017 17:34:53
--- NOTE | 2017-02-24 16:56 | EKG ---
Date Performed: 02/23/2017 Time Performed: 11:54:14 PTAGE: 51 years EKG: Sinus rhythm Since previous tracing, no significant change noted NORMAL ECG PREVIOUS TRACING : 07/30/2016 18.05 DOCTOR: Sherry Collins Interpretating Date/Time 02/24/2017 17:34:30
[2017-02-24] MEDS ORDERED: POTASSIUM CHLORIDE 10 MEQ CONTROLLED RELEASE TAB PO ONE (17:30)
[2017-02-24] MEDS: APIXABAN 2.5 MG TABLET PO SCH (20:28)
[2017-02-24] MEDS ORDERED: oxyCODONE/ACETAMINOPHEN 10 MG/325 MG TAB PO ONE (23:45)
[2017-02-25] VITALS (9 sets, daily range): BP systolic 124–164; BP diastolic 58–83; PULSE 76–102; RESP 16–20; TEMP 97.3–98; O2SAT 96–100
[2017-02-25] MEDS: HYDROmorphone HCL 2 MG TAB PO PRN ×4 (00:19→20:13)
[2017-02-25] MEDS: PANTOPRAZOLE INJ 80 MG in SODIUM CHLORIDE 0.9% INJ 100 ML IV SCH ×2 (03:42→11:19)
[2017-02-25] MEDS: SODIUM CHLOR 0.9% 1000 ML INJ 1,000 ML IV SCH ×2 (03:42→11:19)
[2017-02-25] MEDS: LORazepam 2 MG TAB PO PRN ×3 (06:33→20:11)
[2017-02-25 07:08] LABS: BICARBONATE 27.7 MEQ/L (21.0-32.0); POTASSIUM 3.2 MEQ/L (3.5-5.1)
[2017-02-25 07:16] LABS: HEMATOCRIT 37.2 % (39.0-51.0); MEAN CORPUSCULAR HEMOGLOBIN 19.8 PG (27.0-34.0); MEAN CORPUSCULAR HGB CONC 31.5 % (32.0-36.0); PLATELET COUNT 161 TH/MM3 (150-450); RED CELL DISTRIBUTION WIDTH 17.9 % (11.6-17.2); REVIEW FLAG FINAL; WHITE BLOOD COUNT 3.6 TH/MM3 (4.0-11.0)
[2017-02-25 07:58] LABS: TRANSFERRIN IRON PROFILE 221 MG/DL (200-360)
[2017-02-25 08:00] LABS: FERRITIN 166 NG/ML (26-388)
[2017-02-25] MEDS ORDERED: POTASSIUM CHLORIDE 10 MEQ CONTROLLED RELEASE TAB PO ONE (08:00)
[2017-02-25] MEDS: lamoTRIgine 100 MG TAB PO SCH ×2 (08:11→20:12)
[2017-02-25] MEDS: levETIRAcetam 500 MG TAB PO SCH ×2 (08:11→20:11)
[2017-02-25] MEDS: predniSONE 20 MG TAB PO SCH (08:11)
[2017-02-25] MEDS: sulfaSALAzine 500 MG TAB PO SCH ×2 (08:11→20:11)
[2017-02-25] MEDS: SODIUM CHLORIDE 0.9% FLUSH 10 ML FLUSH IV FLUSH SCH ×2 (08:12→20:13)
[2017-02-25] MEDS: APIXABAN 2.5 MG TABLET PO SCH ×2 (08:12→20:12)
--- NOTE | 2017-02-25 08:24 | MP ---
cc: ROHAN JANE MD DATE OF SURGERY 02/24/2017 PROCEDURE Esophagogastroduodenoscopy with biopsy. INDICATIONS Hematemesis. PROCEDURE After informed consent was obtained, the patient was placed in the left side down position. He was sedated by the Anesthesia Service. After adequate sedation was achieved, the Olympus video gastroscope was inserted in the oropharynx and advanced through the esophagus, stomach and duodenum. It was then slowly withdrawn, examining the mucosal surfaces carefully. A retroflex exam was performed in the fundus and cardia. The scope was then straightened and two biopsies were obtained from the gastric antrum. The scope was then withdrawn slowly through the esophagus and the procedure was terminated. He tolerated the procedure well and was returned to the recovery area in good condition. FINDINGS 1. The esophagus was normal. 2. The stomach showed some mild gastritis and biopsies were obtained in the antrum. 3. The duodenum was normal. IMPRESSION Mild antral gastritis. RECOMMENDATIONS The patient may eat now, tolerate a regular diet. He may be discharged to home as appropriate. Rohan Jane MD [facility] /10:08 AM /8:25 AM
--- NOTE | 2017-02-25 10:08 | HHI.FPPN ---
Subjective Remarks Patient seen and examined this morning. No acute events overnight with vital signs stable. Patient very agitated upon entering the room this morning. Per nursing report, patient has been trying to leave his room to meet his friend in order to pay his bills. He states that he "has to be out of the hospital by tomorrow in order to handle his affairs." His agitation started last night as he reportedly was unable to receive his dinner last night. This morning he was unhappy with the temperature of his breakfast and refused to eat it. He also complains of constipation, however he states this is his baseline secondary to his Crohn's disease. He denies any fevers, SOB, chest pain, NVD, or calf tenderness. (Thompson Ricketts MD R1) Objective Vitals Vital Signs Date Time Temp Pulse Resp B/P Pulse Ox O2 Delivery O2 Flow Rate FiO2 02/25/17 08:10 Room Air 02/25/17 08:00 97.7 88 20 124/74 98 02/25/17 04:25 97.3 80 18 137/64 98 02/25/17 00:00 98.0 96 20 164/83 100 02/24/17 21:31 85 02/24/17 20:00 98.0 86 16 145/70 100 02/24/17 19:00 100 Room Air 02/24/17 17:35 98 21 02/24/17 16:42 97.6 101 18 133/62 98 02/24/17 12:11 97.8 94 20 149/84 98 02/24/17 10:13 88 18 138/71 97 I/O 02/24/17 02/24/17 02/24/17 02/25/17 02/25/17 02/25/17 07:00 15:00 23:00 07:00 15:00 23:00 Intake Total 1652 ml 460 ml 600 ml Output Total 200 ml 375 ml 800 ml Balance 1452 ml 85 ml -200 ml Intake Oral 240 ml 360 ml 600 ml IV Total 1412 ml Other 100 ml Output Urine Total 200 ml 375 ml 800 ml # Bowel Movements 2 1 1 (Thompson Ricketts MD R1) Result Diagram: 02/25/1762102/25/17621 Objective Remarks GENERAL: Agitated 51 y/o M lying in bed in no acute distress. SKIN: No rashes, ecchymoses or lesions. HEENT: AT, NC with EOMI. No rhinorrhea. MMM. No LAD or JVD appreciated. CARDIOVASCULAR: Regular rate and rhythm without murmurs, gallops, or rubs. RESPIRATORY: Clear to auscultation. Breath sounds equal bilaterally. No wheezes , rales, or rhonchi. GASTROINTESTINAL: Significant abdominal hernias from prior incisions that are reducible, voluntary guarding, no rebound tenderness, soft, tender mostly in epigastric region. MUSCULOSKELETAL: Extremities without cyanosis or edema. No calf tenderness. NEUROLOGICAL: AAOx3. Patient agitated with somewhat flat affect. Upon BL arm extension, patient experiences moderate tremulousness. (Thompson Ricketts MD R1) A/P Assessment and Plan 51 year old male with severe alcoholism and suspected upper GI bleed. Discharge Planning Pending clinical improvement and weening off Ativan per CIWA protocol. (Thompson Ricketts MD R1) Attending Attestation Patient seen and examined. Case reviewed and discussed with the resident team. Agree with plan of care as discussed with me and documented in the resident note. concern for severe withdrawal from alcohol with his nearly 50 beers per day. he is not thinking clearly today. he had hallucinations yesterday. agree with librium as he needs some long acting medicine to hopefully keep him out of worse trouble (Maria Esther Jeff MD) Problem List: (1) Upper GI bleed Status: Acute Plan: Had one episode of hematemesis with black vomitus. Patient with history of Crohn's disease per his report. History of severe alcoholism. DDx: varices, perforation, gastritis, gastric ulcer. - Consulted GI, EGD showed normal esophagus and duodenum with mild gastritis. Biopsy x2 pending pathology. - Started prednisone 20 mg daily and sulfasalazine 500 mg twice a day for Crohn' s disease. - Regular diet as tolerated - Serial H&H WNL, restarted anticoagulation - IV Protonix - Fluid resuscitation - Monitor vitals - O2 supplementation as needed (2) Alcohol withdrawal Status: Acute Plan: 48 beers per day, history of alcohol abuse with recent relapse. Longest period sober was 9 months. Was going to AA meetings. Currently tremulous, no significant agitation, no hallucinations, mildly diaphoretic. - CIWA protocol - Start Librium 25mg TID for continued withdrawal - Benzodiazepines PRN depending on CIWA scores - Multivitamin, thiamine, folic acid - Continue home seizure medications - Alcohol abuse counseling - Case management consult - Refer for outpatient rehabilitation (3) Chest pain Status: Acute Plan: Chest pain in context of acute GI bleed. less likely cardiac - Trended troponin, EKG's: no signs of ACS - Continuous telemetry - Chest x-ray (4) Seizure disorder Status: Chronic Plan: - Continue Keppra, Lamictal from home - Levetiracetam: 15.5 - Lamotrigine: Pending - Seizure precautions (5) Contraindication to anticoagulation therapy Status: Acute Plan: Active GI bleed Bilateral SCD's Has history of DVT, on Eliquis at home, restarted with negative EGD (6) Nutrition, metabolism, and development symptoms Status: Acute Plan: - IVF normal saline at maintenance - Replace potassium - Monitor electrolytes - Regular diet as tolerated (Thompson Ricketts MD R1) Problem Qualifiers (1) Alcohol withdrawal: Qualified Code: F10.232 - Alcohol withdrawal, with perceptual disturbance (2) Chest pain: Qualified Code: R07.9 - Chest pain, unspecified type Thompson Ricketts MD R1 Feb 25, 2017 10:08 Maria Esther Jeff MD Feb 25, 2017 17:18
[2017-02-25] MEDS: HALOPERIDOL LACTATE 5 MG/ML AMP IM PRN ×2 (10:10→15:29)
[2017-02-25] MEDS: LORazepam 2 MG/ML VIAL IV PUSH PRN ×2 (11:18→14:09)
[2017-02-25] MEDS: MULTIVITAMIN INJ 10 ML, FOLIC ACID INJ 1 MG in SODIUM CHLORID 0.9% 500 ML INJ 500 ML IV SCH (11:19)
--- NOTE | 2017-02-25 12:44 | HHI.GIFU ---
Subjective Remarks Resting in bed. very lethargic. Awakens, but quickly drifts back to sleep. He does have some abdominal pain, but drifts back to sleep before he can further describe. Objective Vitals I&O Vital Signs Date Time Temp Pulse Resp B/P Pulse Ox O2 Delivery O2 Flow Rate FiO2 02/25/17 10:35 98 02/25/17 08:10 Room Air 02/25/17 08:00 97.7 88 20 124/74 98 02/25/17 04:25 97.3 80 18 137/64 98 02/25/17 00:00 98.0 96 20 164/83 100 02/24/17 21:31 85 02/24/17 20:00 98.0 86 16 145/70 100 02/24/17 19:00 100 Room Air 02/24/17 17:35 98 21 02/24/17 16:42 97.6 101 18 133/62 98 I/O 02/24/17 02/24/17 02/24/17 02/25/17 02/25/17 02/25/17 07:00 15:00 23:00 07:00 15:00 23:00 Intake Total 1652 ml 460 ml 600 ml Output Total 200 ml 375 ml 800 ml Balance 1452 ml 85 ml -200 ml Intake Oral 240 ml 360 ml 600 ml IV Total 1412 ml Other 100 ml Output Urine Total 200 ml 375 ml 800 ml # Bowel Movements 2 1 1 Laboratory Laboratory Tests Test 02/24/17 02/25/17 14:21 06:22 Hemoglobin 11.0 11.7 Hematocrit 34.4 37.2 White Blood Count 3.6 Red Blood Count 5.90 Mean Corpuscular Volume 63.0 Mean Corpuscular Hemoglobin 19.8 Mean Corpuscular Hemoglobin 31.5 Concent Red Cell Distribution Width 17.9 Platelet Count 161 Mean Platelet Volume 8.6 Sodium Level 140 Potassium Level 3.2 Chloride Level 107 Carbon Dioxide Level 27.7 Anion Gap 5 Blood Urea Nitrogen 2 Creatinine 0.68 Estimat Glomerular Filtration 122 Rate Random Glucose 74 Calcium Level 7.7 Iron Level 72 Total Iron Binding Capacity 309 Percent Iron Saturation 23.3 Ferritin 166 Imaging Last Impressions Liver Ultrasound 02/23/17 0000 Signed Impressions: Service Date/Time: Thursday, February 23, 2017 13:06 - CONCLUSION: Mild fatty infiltration without duct dilatation. Stable mildly echogenic lesion in the liver. Colin Hernández MD FACR Chest X-Ray 02/23/17 0000 Signed Impressions: Service Date/Time: Thursday, February 23, 2017 11:28 - CONCLUSION: 1. Minimal left basilar atelectasis. Jeramy Grimes MD Physical Exam HEENT: Normocephalic; atraumatic; no jaundice. CHEST: CTA CARDIAC: RRR ABDOMEN: Soft, bowel sounds are present in all four quadrants. EXTREMITIES: No clubbing, cyanosis, or edema. SKIN: Normal; no rash; no jaundice. CONDUCTOR PULLMAN: Lethargic. Assessment and Plan Plan Assessment: - Hematemesis, mild. S/P EGD (02/24/17)---> normal esophagus, mild gastritis in the antrum, normal duodenum. Pathology pending. PPI. No further vomiting. HH stable 11.7/37.2. - Crohns disease, has not been on medications. Started on prednisone and sulfasalazine. - Acute and chronic alcoholism, with DTs. Librium, MVI, Folic acid, Ativan, Haldol per primary. - Mild LFT Elevation. Liver Ultrasound (02/23/17)----> Mild fatty infiltration without duct dilatation. Stable mildly echogenic lesion in the liver. - Hx DVT. Eliquis. - Sz D/O per primary. On Keppra/Lamictal. Also going through DTs. Rec: - LALIT - D/C Protonix Gtt - Protonix 40mg po daily - Cont. Prednisone - Cont. Sulfasalazine - DT precautions - Supportive care - Further recommendations to follow based on results of above - Pt seen and examined by Dr. Jane and myself and this note is written on his behalf Ketty Saldaña Feb 25, 2017 12:44
[2017-02-25] MEDS ORDERED: chlordiazePOXIDE 25 MG CAP PO PRN (13:00)
[2017-02-26] VITALS (9 sets, daily range): BP systolic 120–143; BP diastolic 60–77; PULSE 79–95; RESP 16–20; TEMP 97.4–97.7; O2SAT 98–100
[2017-02-26] MEDS: LORazepam 1 MG TAB PO PRN ×2 (00:08→06:20)
[2017-02-26] MEDS: HYDROmorphone HCL 2 MG TAB PO PRN ×6 (00:08→23:48)
[2017-02-26 08:58] LABS: BICARBONATE 25.5 MEQ/L (21.0-32.0)
[2017-02-26 08:59] LABS: HEMATOCRIT 32.6 % (39.0-51.0); MEAN CELL VOLUME 62.3 FL (80.0-100.0); MEAN CORPUSCULAR HEMOGLOBIN 19.7 PG (27.0-34.0); MEAN CORPUSCULAR HGB CONC 31.6 % (32.0-36.0); PLATELET COUNT 172 TH/MM3 (150-450); RED BLOOD COUNT 5.22 MIL/MM3 (4.50-5.90); RED CELL DISTRIBUTION WIDTH 17.8 % (11.6-17.2); REVIEW FLAG FINAL; WHITE BLOOD COUNT 4.9 TH/MM3 (4.0-11.0)
[2017-02-26] MEDS: APIXABAN 2.5 MG TABLET PO SCH ×2 (09:21→19:56)
[2017-02-26] MEDS: PANTOPRAZOLE SOD 40 MG DELAYED RELEASE TAB PO SCH (09:21)
[2017-02-26] MEDS: lamoTRIgine 100 MG TAB PO SCH ×2 (09:21→19:54)
[2017-02-26] MEDS: SODIUM CHLORIDE 0.9% FLUSH 10 ML FLUSH IV FLUSH SCH ×2 (09:22→19:56)
[2017-02-26] MEDS: levETIRAcetam 500 MG TAB PO SCH ×2 (09:22→19:57)
[2017-02-26] MEDS: MULTIVITAMIN TAB PO SCH (09:22)
[2017-02-26] MEDS: FOLIC ACID 1 MG TAB PO SCH (09:22)
[2017-02-26] MEDS: THIAMINE HCL 100 MG TAB PO SCH (09:22)
[2017-02-26] MEDS: sulfaSALAzine 500 MG TAB PO SCH ×2 (09:22→19:55)
[2017-02-26] MEDS: predniSONE 20 MG TAB PO SCH (09:22)
[2017-02-26] MEDS ORDERED: POTASSIUM CHLORIDE 10 MEQ CONTROLLED RELEASE TAB PO ONE ×2 (10:15→21:00)
--- NOTE | 2017-02-26 10:19 | HHI.FPPN ---
Subjective Remarks Patient seen and examined this morning by medical team. No acute events overnight. Vital signs stable. Patient with CIWA scores ranging from 6-16 over the last 24 hours with 12 mg of Ativan and 4 mg of Haldol administered. Patient appears much improved from yesterday as his agitation has subsided. He states that he is back at his baseline and would like to go home today. We discussed his plan for abstinence upon discharge to which he stated he was "plugged and" to alcoholics anonymous and has a current sponsor. He states that he will attend daily meetings and is determined to "change his life." His only complaint this morning is that he is concerned his patient assistance will not cover his Crohn's disease medications, but does want to follow-up with his cma or lpn for future treatment. Otherwise he denies any fevers, chills , hallucinations, chest pain, shortness breath, abdominal pain, or calf tenderness. (Thompson Ricketts MD R1) Objective Vitals Vital Signs Date Time Temp Pulse Resp B/P Pulse Ox O2 Delivery O2 Flow Rate FiO2 02/26/17 08:55 98 21 02/26/17 08:00 97.7 91 20 120/72 98 02/26/17 04:00 97.6 84 16 123/61 100 02/26/17 03:47 Room Air 02/26/17 00:05 Room Air 02/26/17 00:00 97.6 79 16 141/77 99 02/25/17 20:10 Room Air 02/25/17 20:03 76 02/25/17 20:00 97.6 88 16 126/58 100 02/25/17 17:58 98 21 02/25/17 16:00 97.3 97 20 135/67 98 02/25/17 12:00 97.7 102 20 152/82 96 02/25/17 10:35 98 I/O 02/25/17 02/25/17 02/25/17 02/26/17 02/26/17 02/26/17 07:00 15:00 23:00 07:00 15:00 23:00 Intake Total 480 ml 242 ml 720 ml Output Total 300 ml Balance 480 ml -58 ml 720 ml Intake Oral 480 ml 240 ml 720 ml IV Total 2 ml Output Urine Total 300 ml # Voids 4 5 # Bowel Movements 1 2 5 (Thompson Ricketts MD R1) Result Diagram: 02/26/17 0734 02/26/17 0734 Objective Remarks GENERAL: 51 y/o M sitting up in bed in no acute distress. SKIN: No rashes, ecchymoses or lesions. HEENT: AT, NC with EOMI. No rhinorrhea. MMM. No LAD or JVD appreciated. CARDIOVASCULAR: Regular rate and rhythm without murmurs, gallops, or rubs. RESPIRATORY: Clear to auscultation. Breath sounds equal bilaterally. No wheezes , rales, or rhonchi. GASTROINTESTINAL: Significant abdominal hernias from prior incisions that are reducible, voluntary guarding, no rebound tenderness, soft, tender mostly in epigastric region. Positive bowel sounds MUSCULOSKELETAL: Extremities without cyanosis or edema. No calf tenderness. NEUROLOGICAL: AAOx3. Patient currently not agitated with improved mood. Normal speech and judgment. Negative for tremor upon outstretched hands. Gait is mildly slowed but stable. (Thompson Ricketts MD R1) A/P Assessment and Plan 51 year old male with severe alcoholism and suspected upper GI bleed. Discharge Planning Pending clinical improvement and weening off Ativan per [facility] protocol. (Thompson Ricketts MD R1) Attending Attestation Patient seen and examined. Case reviewed and discussed with the resident team. Agree with plan of care as discussed with me and documented in the resident note. he is improved but still slightly tremulous. he has the capacity to make decisions and this point and is thinking clearly. recommended he stay for one more day as he has required so much ativan and haldol. (Maria Esther Jeff MD) Problem List: (1) Upper GI bleed Status: Acute Plan: Had one episode of hematemesis with black vomitus. Patient with history of Crohn's disease per his report. History of severe alcoholism. DDx: varices, perforation, gastritis, gastric ulcer. - Consulted GI, EGD showed normal esophagus and duodenum with mild gastritis. Biopsy x2 pending pathology. - Started prednisone 20 mg daily and sulfasalazine 500 mg twice a day for Crohn' s disease. - Regular diet as tolerated - Serial H&H WNL, restarted anticoagulation - IV Protonix - Fluid resuscitation - Monitor vitals - O2 supplementation as needed (2) Alcohol withdrawal Status: Acute Plan: 48 beers per day, history of alcohol abuse with recent relapse. Longest period sober was 9 months. Was going to AA meetings. Currently tremulous, no significant agitation, no hallucinations, mildly diaphoretic. - CIWA protocol -Taper Librium 25mg to BID for continued withdrawal - Benzodiazepines PRN depending on CIWA scores - Multivitamin, thiamine, folic acid - Continue home seizure medications - Alcohol abuse counseling - Case management consult - Refer for outpatient rehabilitation (3) Chest pain Status: Acute Plan: Chest pain in context of acute GI bleed. less likely cardiac - Trended troponin, EKG's: no signs of ACS - Continuous telemetry - Chest x-ray minimal basilar atelectasis (4) Seizure disorder Status: Chronic Plan: - Continue Keppra, Lamictal from home - Levetiracetam: 15.5 - Lamotrigine: Pending - Seizure precautions (5) Contraindication to anticoagulation therapy Status: Acute Plan: Active GI bleed Bilateral SCD's Has history of DVT, on Eliquis at home, restarted with negative EGD (6) Nutrition, metabolism, and development symptoms Status: Acute Plan: - Tolerating PO fluids - Replace potassium - Monitor electrolytes - Regular diet as tolerated (Thompson Ricketts MD R1) Problem Qualifiers (1) Alcohol withdrawal: Qualified Code: F10.232 - Alcohol withdrawal, with perceptual disturbance (2) Chest pain: Qualified Code: R07.9 - Chest pain, unspecified type Thompson Ricketts MD R1 Feb 26, 2017 10:19 Maria Esther Jeff MD Feb 26, 2017 11:47
[2017-02-26] MEDS: chlordiazePOXIDE 25 MG CAP PO SCH ×2 (11:59→19:58)
--- NOTE | 2017-02-26 14:00 | HHI.GIFU ---
Subjective Remarks Resting in bed. No n/v. Continues to have some abdominal pain/distention. 3- 4 loose green stools today without blood or mucous. Tolerating diet. Objective Vitals I&O Vital Signs Date Time Temp Pulse Resp B/P Pulse Ox O2 Delivery O2 Flow Rate FiO2 02/26/17 12:00 97.4 94 20 123/67 98 02/26/17 09:31 95 02/26/17 09:31 Room Air 02/26/17 08:55 98 21 02/26/17 08:00 97.7 91 20 120/72 98 02/26/17 04:00 97.6 84 16 123/61 100 02/26/17 03:47 Room Air 02/26/17 00:05 Room Air 02/26/17 00:00 97.6 79 16 141/77 99 02/25/17 20:10 Room Air 02/25/17 20:03 76 02/25/17 20:00 97.6 88 16 126/58 100 02/25/17 17:58 98 21 02/25/17 16:00 97.3 97 20 135/67 98 I/O 02/25/17 02/25/17 02/25/17 02/26/17 02/26/17 02/26/17 07:00 15:00 23:00 07:00 15:00 23:00 Intake Total 480 ml 242 ml 720 ml Output Total 300 ml Balance 480 ml -58 ml 720 ml Intake Oral 480 ml 240 ml 720 ml IV Total 2 ml Output Urine Total 300 ml # Voids 4 5 # Bowel Movements 1 2 5 Laboratory Laboratory Tests Test 02/26/17 07:34 White Blood Count 4.9 Red Blood Count 5.22 Hemoglobin 10.3 Hematocrit 32.6 Mean Corpuscular Volume 62.3 Mean Corpuscular Hemoglobin 19.7 Mean Corpuscular Hemoglobin 31.6 Concent Red Cell Distribution Width 17.8 Platelet Count 172 Mean Platelet Volume 8.6 Sodium Level 141 Potassium Level 3.0 Chloride Level 107 Carbon Dioxide Level 25.5 Anion Gap 9 Blood Urea Nitrogen 3 Creatinine 0.72 Estimat Glomerular Filtration 114 Rate Random Glucose 78 Calcium Level 7.5 Imaging Last Impressions Liver Ultrasound 02/23/17 0000 Signed Impressions: Service Date/Time: Thursday, February 23, 2017 13:06 - CONCLUSION: Mild fatty infiltration without duct dilatation. Stable mildly echogenic lesion in the liver. Colin Hernández MD FACR Chest X-Ray 02/23/17 0000 Signed Impressions: Service Date/Time: Thursday, February 23, 2017 11:28 - CONCLUSION: 1. Minimal left basilar atelectasis. Jeramy Grimes MD Physical Exam HEENT: Normocephalic; atraumatic; no jaundice. CHEST: CTA CARDIAC: RRR ABDOMEN: Soft, bowel sounds are present in all four quadrants. EXTREMITIES: No clubbing, cyanosis, or edema. SKIN: Normal; no rash; no jaundice. [employer]: Lethargic. Assessment and Plan Plan Assessment: - Hematemesis, mild. S/P EGD (02/24/17)---> normal esophagus, mild gastritis in the antrum, normal duodenum. Pathology pending. PPI. No further vomiting. HH stable 10.3/32.6. - Abdominal distention. Diffuse cramping/pain. Will get ct scan abdomen and pelvis - Crohns disease, has not been on medications. Started on prednisone and sulfasalazine. 3-4 loose stools so far today, no blood or mucous. - Acute and chronic alcoholism, with DTs. Librium, MVI, Folic acid, Ativan, Haldol per primary. - Mild LFT Elevation. Liver Ultrasound (02/23/17)----> Mild fatty infiltration without duct dilatation. Stable mildly echogenic lesion in the liver. - Hx DVT. Eliquis. - Sz D/O per primary. On Keppra/Lamictal. Also going through DTs. Rec: - [facility] - CT scan abdomen and pelvis - Protonix 40mg po daily - Cont. Prednisone - Cont. Sulfasalazine - DT precautions - Supportive care - Further recommendations to follow based on results of above - Pt seen and examined by Dr. Jane and myself and this note is written on his behalf Ketty Saldaña Feb 26, 2017 14:00
--- NOTE | 2017-02-26 16:55 | RADRPT ---
EXAM DATE/TIME: 02/26/2017 16:13 [place] COMPARISON: No previous studies available for comparison. INDICATIONS : Abdominal distention with nausea , vomiting, diarrhoea ORAL CONTRAST: Prescribed oral contrast ingested. RADIATION DOSE: 9.96 CTDIvol (mGy) MEDICAL HISTORY : Seizures. Cardiovascular disease Hypercholesterolemia. SURGICAL HISTORY : Appendectomy. Cholecystectomy. ENCOUNTER: Initial ACUITY: 1 day PAIN SCALE: 9/10 LOCATION: Bilateral upper quadrant TECHNIQUE: Volumetric scanning of the abdomen and pelvis was performed. Using automated exposure control and adjustment of the mA and/or kV according to patient size, radiation dose was kept as low as reasonably achievable to obtain optimal diagnostic quality images. FINDINGS: There is minimal subsegmental atelectasis or scarring at the lung bases. Mild fatty liver. Spleen, ad renals, kidneys and pancreas unremarkable. Previous cholecystectomy. There is previous ventral hernia repair and small bowel surgery. No bowel obstruction. No free fluid or free air. Previous distention of bowel seen on February 02 has improved. CONCLUSION: No acute findings. Resolution of previous bowel dilatation compared with February 02, 2017. Minimal scarri ng at the lung bases. Mild fatty liver. Postop cholecystectomy and small bowel surgery. Previous vent ral hernia repair. Delio Wing MD on February 26, 2017 at 16:46 Board Certified Radiologist. This report was verified electronically.
[2017-02-26] MEDS ORDERED: sulfaSALAzine 500 MG TAB PO ONE (22:00)
[2017-02-27] VITALS: BP 120/63; PULSE 62; RESP 20; TEMP 97.5; O2SAT 99
[2017-02-27] MEDS: HYDROmorphone HCL 2 MG TAB PO PRN (03:51)
[2017-02-27 04:00] VITALS: BP 122/57; PULSE 65; RESP 18; TEMP 97.5; O2SAT 98
[2017-02-27] MEDS: LORazepam 1 MG TAB PO PRN (05:15)
[2017-02-27] MEDS ORDERED: POTASSIUM CHLORIDE 10 MEQ CONTROLLED RELEASE TAB PO ONE ×2 (07:15→11:15)
[2017-02-27 08:03] VITALS: BP 110/63; PULSE 107; RESP 18; TEMP 97.6; O2SAT 99
[2017-02-27 08:16] LABS: MEAN CELL VOLUME 63.2 FL (80.0-100.0); MEAN CORPUSCULAR HEMOGLOBIN 20.1 PG (27.0-34.0); MEAN CORPUSCULAR HGB CONC 31.8 % (32.0-36.0); PLATELET COUNT 195 TH/MM3 (150-450); RED BLOOD COUNT 6.02 MIL/MM3 (4.50-5.90); RED CELL DISTRIBUTION WIDTH 17.8 % (11.6-17.2); REVIEW FLAG FINAL; WHITE BLOOD COUNT 6.3 TH/MM3 (4.0-11.0)
[2017-02-27 08:43] LABS: BICARBONATE 24.5 MEQ/L (21.0-32.0); POTASSIUM 3.5 MEQ/L (3.5-5.1)
[2017-02-27] MEDS: SODIUM CHLORIDE 0.9% FLUSH 10 ML FLUSH IV FLUSH SCH (09:00)
[2017-02-27] MEDS ORDERED: sulfaSALAzine 500 MG TAB PO SCH (09:00)
[2017-02-27] MEDS: lamoTRIgine 100 MG TAB PO SCH (09:01)
[2017-02-27] MEDS: THIAMINE HCL 100 MG TAB PO SCH (09:01)
[2017-02-27] MEDS: MULTIVITAMIN TAB PO SCH (09:02)
[2017-02-27] MEDS: predniSONE 20 MG TAB PO SCH (09:02)
[2017-02-27] MEDS: PANTOPRAZOLE SOD 40 MG DELAYED RELEASE TAB PO SCH (09:02)
[2017-02-27] MEDS: APIXABAN 2.5 MG TABLET PO SCH (09:02)
[2017-02-27] MEDS: chlordiazePOXIDE 25 MG CAP PO SCH (09:02)
[2017-02-27] MEDS: FOLIC ACID 1 MG TAB PO SCH (09:02)
[2017-02-27] MEDS: levETIRAcetam 500 MG TAB PO SCH (09:02)
--- NOTE | 2017-02-27 10:17 | HHI.FPPN ---
Subjective Remarks Patient seen and examined this morning. No acute events overnight with vital signs stable. Patient's CIWA scores range from 3-9 over the last 24 hours with 1 mg of Ativan given. Patient was also administered Librium to assist with withdrawal symptoms. This morning patient states he is doing well and is back to his baseline. He requests his discharge at this time. We again discussed his future plan to avoid alcohol. He insists that he has a sponsor and is affiliated with an Alcoholics Anonymous program within the time. He plans to return to sponsor and 2 start attending daily meetings again. We also discussed his abdominal pain which he reports is at his baseline. He intends on following up with gastroenterology to continue treatment for his Crohn's disease. Otherwise he has no complaints and denies any fevers, chills, shortness of breath, chest pain, NVD, or calf tenderness. (Thompson Ricketts MD R1) Objective Vitals Vital Signs Date Time Temp Pulse Resp B/P Pulse Ox O2 Delivery O2 Flow Rate FiO2 02/27/17 04:23 Room Air 02/27/17 04:00 97.5 65 18 122/57 98 02/27/17 00:00 97.5 62 20 120/63 99 02/27/17 00:00 Room Air 02/26/17 22:14 99 21 02/26/17 20:10 93 02/26/17 20:00 Room Air 02/26/17 16:00 97.7 88 20 136/69 100 02/26/17 12:00 97.4 94 20 123/67 98 I/O 02/26/17 02/26/17 02/26/17 02/27/17 02/27/17 02/27/17 06:59 14:59 22:59 06:59 14:59 22:59 Intake Total 720 ml 1082 ml 120 ml Balance 720 ml 1082 ml 120 ml Intake Oral 720 ml 1080 ml 120 ml IV Total 2 ml # Voids 5 4 4 # Bowel Movements 5 2 1 (Thompson Ricketts MD R1) Result Diagram: 02/27/1772602/27/17726 Objective Remarks GENERAL: 51 y/o M sitting up in bed in no acute distress. SKIN: No rashes, ecchymoses or lesions. HEENT: AT, NC with EOMI. No rhinorrhea. MMM. No LAD or JVD appreciated. CARDIOVASCULAR: Regular rate and rhythm without murmurs, gallops, or rubs. RESPIRATORY: Clear to auscultation. Breath sounds equal bilaterally. No wheezes , rales, or rhonchi. GASTROINTESTINAL: Significant abdominal hernias from prior incisions that are reducible, no voluntary guarding, no rebound tenderness, soft, tender mostly in epigastric region. Positive bowel sounds. MUSCULOSKELETAL: Extremities without cyanosis or edema. No calf tenderness. NEUROLOGICAL: AAOx3. Patient currently not agitated with improved mood. Normal speech and judgment. Negative for tremor upon outstretched hands. Gait is mildly slowed but stable. (Thompson Ricketts MD R1) A/P Assessment and Plan 51 year old male with severe alcoholism and suspected upper GI bleed. Discharge Planning Medical team will plan for discharge home today. (Thompson Ricketts MD R1) Attending Attestation Patient seen and examined. Case reviewed and discussed with the resident team. Agree with plan of care as discussed with me and documented in the resident note. stable overall (Maria Esther Jeff MD) Problem List: (1) Upper GI bleed Status: Acute Plan: Had one episode of hematemesis with black vomitus. Patient with history of Crohn's disease per his report. History of severe alcoholism. DDx: varices, perforation, gastritis, gastric ulcer. - Consulted GI, EGD showed normal esophagus and duodenum with mild gastritis. Biopsy x2 pending pathology. - Started prednisone 20 mg daily and sulfasalazine 500 mg twice a day for Crohn' s disease. Medical team will recheck to GI for further recommendations at discharge. - Regular diet as tolerated - Serial H&H WNL, restarted anticoagulation - IV Protonix - Fluid resuscitation - Monitor vitals - O2 supplementation as needed (2) Alcohol withdrawal Status: Acute Plan: 48 beers per day, history of alcohol abuse with recent relapse. Longest period sober was 9 months. Was going to AA meetings. Currently tremulous, no significant agitation, no hallucinations, mildly diaphoretic. - CIWA protocol -Taper Librium 25mg to BID for continued withdrawal. Librium will be discontinued at discharge. - Benzodiazepines PRN depending on CIWA scores - Multivitamin, thiamine, folic acid - Continue home seizure medications - Alcohol abuse counseling - Case management consult - Refer for outpatient rehabilitation (3) Chest pain Status: Acute Plan: Chest pain in context of acute GI bleed. less likely cardiac - Trended troponin, EKG's: no signs of ACS - Continuous telemetry - Chest x-ray minimal basilar atelectasis (4) Seizure disorder Status: Chronic Plan: - Continue Keppra, Lamictal from home - Levetiracetam: 15.5 - Lamotrigine: 4.4 - Seizure precautions (5) Contraindication to anticoagulation therapy Status: Acute Plan: Active GI bleed Bilateral SCD's Has history of DVT, on Eliquis at home, restarted with negative EGD (6) Nutrition, metabolism, and development symptoms Status: Acute Plan: - Tolerating PO fluids - Replace potassium as needed - Monitor electrolytes - Regular diet as tolerated (Thompson Ricketts MD R1) Problem Qualifiers (1) Alcohol withdrawal: Qualified Code: F10.232 - Alcohol withdrawal, with perceptual disturbance (2) Chest pain: Qualified Code: R07.9 - Chest pain, unspecified type Thompson Ricketts MD R1 Feb 27, 2017 10:17 Maria Esther Jeff MD Mar 03, 2017 14:45
[2017-02-27] MEDS ORDERED: PRED5TAB PO (10:59)
[2017-02-27] MEDS ORDERED: SULF500 PO (10:59)
--- NOTE | 2017-02-27 11:00 | HHI.DCPOC ---
Discharge Care Plan Diagnosis: (1) Upper GI bleed (2) Alcohol withdrawal Goals to Promote Your Health * To prevent worsening of your condition and complications * To maintain your health at the optimal level Directions to Meet Your Goals Take your medications as prescribed Follow your dietary instruction Follow activity as directed Keep your appointments as scheduled Take your immunizations and boosters as scheduled If your symptoms worsen call your PCP, if no PCP go to Urgent Care Center or Emergency Room Smoking is Dangerous to Your Health. Avoid second hand smoke Call the 24-hour hour crisis hotline for domestic abuse at Thompson Ricketts MD R1 Feb 27, 2017 11:00
--- NOTE | 2017-02-27 11:33 | HHI.DS ---
Discharge Summary Admission Date Feb 23, 2017 at 10:24 Discharge Date: Feb 27, 2017 Admitting Diagnosis Hematemasis (1) Upper GI bleed Diagnosis: Principal Plan: Had one episode of hematemesis with black vomitus. Patient with history of Crohn's disease per his report. History of severe alcoholism. DDx: varices, perforation, gastritis, gastric ulcer. - Consulted GI, EGD showed normal esophagus and duodenum with mild gastritis. Biopsy x2 pending pathology. - Started prednisone 20 mg daily and sulfasalazine 500 mg twice a day for Crohn' s disease. Medical team will recheck to GI for further recommendations at discharge. - Regular diet as tolerated - Serial H&H WNL, restarted anticoagulation - IV Protonix - Fluid resuscitation - Monitor vitals - O2 supplementation as needed (2) Alcohol withdrawal Diagnosis: Principal Plan: 48 beers per day, history of alcohol abuse with recent relapse. Longest period sober was 9 months. Was going to AA meetings. Currently tremulous, no significant agitation, no hallucinations, mildly diaphoretic. - CIWA protocol -Taper Librium 25mg to BID for continued withdrawal. Librium will be discontinued at discharge. - Benzodiazepines PRN depending on CIWA scores - Multivitamin, thiamine, folic acid - Continue home seizure medications - Alcohol abuse counseling - Case management consult - Refer for outpatient rehabilitation (3) Chest pain Diagnosis: Principal Plan: Chest pain in context of acute GI bleed. less likely cardiac - Trended troponin, EKG's: no signs of ACS - Continuous telemetry - Chest x-ray minimal basilar atelectasis (4) Seizure disorder Diagnosis: Secondary Plan: - Continue Keppra, Lamictal from home - Levetiracetam: 15.5 - Lamotrigine: 4.4 - Seizure precautions (5) Contraindication to anticoagulation therapy Diagnosis: Secondary Plan: Active GI bleed Bilateral SCD's Has history of DVT, on Eliquis at home, restarted with negative EGD (6) Nutrition, metabolism, and development symptoms Diagnosis: Secondary Plan: - Tolerating PO fluids - Replace potassium as needed - Monitor electrolytes - Regular diet as tolerated [facility] Procedures EGD Brief History Mr Quinn is a 51 year old male with severe alcoholism and suspected upper GI bleed. He relapsed on alcohol use one month ago and is up to 48 beers per day. He had one episode of black vomitus and has black stools for the past couple weeks. He had about a cup worth of black emesis. He feels nauseous but has not vomited again and feels better this am. He has moderate epigastric pain. He has tremors and diaphoresis and now hallucinations. He stated someone was in the room that he could see but knew was not there. His last drink was day before yesterday. He reports a history of seizures possibly due to alcohol withdrawal and takes Lamictal and Keppra. His last seizure was two weeks ago. He currently feels mildly lightheaded. He feels chest pressure since earlier today. He has dyspnea on exertion. No blurry vision, focal deficits, calf swelling or tenderness. He reports having a "bad night". He has received ativan and states he has taken librium in the past. He is going for EGD today. CBC/BMP: 02/27/17 0727 02/27/17 0727 Significant Findings Laboratory Tests Test 02/24/17 02/25/17 02/26/17 02/27/17 14:21 06:22 07:34 07:27 Hemoglobin 11.0 GM/DL 11.7 GM/DL 10.3 GM/DL 12.1 GM/DL (13.0-17.0) (13.0-17.0) (13.0-17.0) (13.0-17.0) Hematocrit 34.4 % 37.2 % 32.6 % 38.0 % (39.0-51.0) (39.0-51.0) (39.0-51.0) (39.0-51.0) White Blood Count 3.6 TH/MM3 (4.0-11.0) Mean Corpuscular Volume 63.0 FL 62.3 FL 63.2 FL (80.0-100.0) (80.0-100.0) (80.0-100.0) Mean Corpuscular Hemoglobin 19.8 PG 19.7 PG 20.1 PG (27.0-34.0) (27.0-34.0) (27.0-34.0) Mean Corpuscular Hemoglobin 31.5 % 31.6 % 31.8 % Concent (32.0-36.0) (32.0-36.0) (32.0-36.0) Red Cell Distribution Width 17.9 % 17.8 % 17.8 % (11.6-17.2) (11.6-17.2) (11.6-17.2) Potassium Level 3.2 MEQ/L 3.0 MEQ/L (3.5-5.1) (3.5-5.1) Blood Urea Nitrogen 2 MG/DL (7-18) 3 MG/DL (7-18) 4 MG/DL (7-18) Calcium Level 7.7 MG/DL 7.5 MG/DL (8.5-10.1) (8.5-10.1) Red Blood Count 6.02 MIL/MM3 (4.50-5.90) Chloride Level 108 MEQ/L (98-107) PE at Discharge GENERAL: 51 y/o M sitting up in bed in no acute distress. SKIN: No rashes, ecchymoses or lesions. HEENT: AT, NC with EOMI. No rhinorrhea. MMM. No LAD or JVD appreciated. CARDIOVASCULAR: Regular rate and rhythm without murmurs, gallops, or rubs. RESPIRATORY: Clear to auscultation. Breath sounds equal bilaterally. No wheezes , rales, or rhonchi. GASTROINTESTINAL: Significant abdominal hernias from prior incisions that are reducible, no voluntary guarding, no rebound tenderness, soft, tender mostly in epigastric region. Positive bowel sounds. MUSCULOSKELETAL: Extremities without cyanosis or edema. No calf tenderness. NEUROLOGICAL: AAOx3. Patient currently not agitated with improved mood. Normal speech and judgment. Negative for tremor upon outstretched hands. Gait is mildly slowed but stable. Hospital Course 51 year old male with severe alcoholism was admitted with suspected upper GI bleed. He recently relapsed on alcohol and reported drinking up to 48 beers per day. He had an episode of black vomitus and had been having black stools for two weeks. He also had moderate epigastric pain. He had tremors and diaphoresis but no hallucinations at admission, thought to be due to acute alcohol withdrawals. Hemoglobin/hematocrit was trended and stable. EGD was performed by gastroenterology which showed a normal esophagus and duodenum with mild gastritis. Biopsies are pending and he will follow up with GI after discharge. Regarding alcohol withdrawals, he was placed on a multivitamin, thiamine, and folic acid, and CIWA scoring was performed. He was given Ativan PRN. He also required an additional Librium taper that was discontinued by discharge. He has a history of seizures and will continue his seizure medications at discharge. Case management was consulted to help him finding outpatient rehab programs for his alcoholism. Regarding his chest pain, ACS was ruled out and source was considered most likely GI. He has a history of DVT and was on Eliquis at home, which was held for acute bleed. However, his Eliquis has been restarted. He has a history of Crohn's disease and was started on prednisone 20 mg daily and sulfasalazine 500 mg twice a day for his Crohn's disease. He will follow up with GI and his primary care after discharge, and hopefully pursue outpatient rehab for his alcoholism. Recommend no NSAIDs, and follow up on biopsy results from his EGD. He will also take pantoprazole 40 mg daily. Pt Condition on Discharge: Good Discharge Instructions DIET: Follow Instructions for: As Tolerated, No Restrictions Activities you can perform: Regular-No Restrictions Follow up Referrals: Gastroenterology - 2 Weeks with Rohan Jane MD PCP Follow-up - 1 Week New Medications: Prednisone (Prednisone) 5 Mg Tab 5 MG PO DAILY Please take 20mg (4 tablets) daily for 10 days. Then take 10mg (2 tablets) daily for 10 days. Then take 5mg (1 tablet) daily for 10 days. #70 Ref 0 TAB Sulfasalazine (Azulfidine) 500 Mg Tab 1000 MG PO BID #60 Ref 1 TAB Continued Medications: Apixaban (Eliquis) 2.5 Mg Tab 2.5 MG PO BID Blood Clot Prevention Ref 0 TAB Lamotrigine (Lamictal) 150 Mg Tab 150 MG PO BID Control Seizures #60 Ref 0 TAB Levetiracetam (Keppra) 1,000 Mg Tab 1000 MG PO BID Control Seizures #60 Ref 0 TAB Lorazepam (Lorazepam) 1 Mg Tab 1 MG PO DAILY PRN ANXIETY Ref 0 TAB Patrick Nina MD R2 Feb 27, 2017 11:33
--- NOTE | 2017-02-27 12:28 | HHI.GIFU ---
Subjective Remarks Up in chair. No n/v. No abdominal pain. Diarrhea improved. Hoping to go home later today. Objective Vitals I&O Vital Signs Date Time Temp Pulse Resp B/P Pulse Ox O2 Delivery O2 Flow Rate FiO2 02/27/17 08:15 Room Air 02/27/17 08:03 97.6 107 18 110/63 99 02/27/17 04:23 Room Air 02/27/17 04:00 97.5 65 18 122/57 98 02/27/17 00:00 97.5 62 20 120/63 99 02/27/17 00:00 Room Air 02/26/17 22:14 99 21 02/26/17 20:10 93 02/26/17 20:00 Room Air 02/26/17 16:00 97.7 88 20 136/69 100 I/O 02/26/17 02/26/17 02/26/17 02/27/17 02/27/17 02/27/17 07:00 15:00 23:00 07:00 15:00 23:00 Intake Total 720 ml 1082 ml 120 ml Balance 720 ml 1082 ml 120 ml Intake Oral 720 ml 1080 ml 120 ml IV Total 2 ml # Voids 5 4 4 # Bowel Movements 5 2 1 Laboratory Laboratory Tests Test 02/27/17 07:27 White Blood Count 6.3 Red Blood Count 6.02 Hemoglobin 12.1 Hematocrit 38.0 Mean Corpuscular Volume 63.2 Mean Corpuscular Hemoglobin 20.1 Mean Corpuscular Hemoglobin 31.8 Concent Red Cell Distribution Width 17.8 Platelet Count 195 Mean Platelet Volume 8.4 Sodium Level 140 Potassium Level 3.5 Chloride Level 108 Carbon Dioxide Level 24.5 Anion Gap 8 Blood Urea Nitrogen 4 Creatinine 0.79 Estimat Glomerular Filtration 103 Rate Random Glucose 84 Calcium Level 8.6 Imaging Last Impressions Abdomen/Pelvis CT 02/26/17 0000 Signed Impressions: Service Date/Time: February 16:13 - CONCLUSION: No acute findings. Resolution of previous bowel dilatation compared with February 02, 2017. Minimal scarring at the lung bases. Mild fatty liver. Postop cholecystectomy and small bowel surgery. Previous ventral hernia repair. Delio Wing MD Liver Ultrasound 02/23/17 0000 Signed Impressions: Service Date/Time: Thursday, February 23, 2017 13:06 - CONCLUSION: Mild fatty infiltration without duct dilatation. Stable mildly echogenic lesion in the liver. Colin Hernández MD FACR Chest X-Ray 02/23/17 0000 Signed Impressions: Service Date/Time: Thursday, February 23, 2017 11:28 - CONCLUSION: 1. Minimal left basilar atelectasis. Jeramy Grimes MD Physical Exam HEENT: Normocephalic; atraumatic; no jaundice. CHEST: CTA CARDIAC: RRR ABDOMEN: Soft, bowel sounds are present in all four quadrants. EXTREMITIES: No clubbing, cyanosis, or edema. SKIN: Normal; no rash; no jaundice. GIS CONSULTANT: Lethargic. Assessment and Plan Plan Assessment: - Hematemesis, mild. S/P EGD (02/24/17)---> normal esophagus, mild gastritis in the antrum, normal duodenum. Pathology mildly active chronic antral gastritis, no helicobacter pylori-like organisms are present. PPI. No further vomiting. HH stable - Abdominal distention. Diffuse cramping/pain. Abdomen/Pelvis CT (02/26/17)--- > No acute findings. Resolution of previous bowel dilatation compared with February 02, 2017. Minimal scarring at the lung bases. Mild fatty liver. Postop cholecystectomy and small bowel surgery. Previous ventral hernia repair. - Crohns disease, has not been on medications. Started on prednisone and sulfasalazine. Improved - Acute and chronic alcoholism, with DTs. Librium, MVI, Folic acid, Ativan, Haldol per primary. - Mild LFT Elevation. Liver Ultrasound (02/23/17)----> Mild fatty infiltration without duct dilatation. Stable mildly echogenic lesion in the liver. - Hx DVT. Eliquis. - Sz D/O per primary. On Keppra/Lamictal. Also going through DTs. Rec: - Okay to d/c home from GI standpoint - Cont. Prednisone 20mg po daily x 10 days, then Prednisone 10mg po daily x 10 days, then Prednisone 5mg po daily x 10 days - Cont. Sulfasalazine 1000mg po BID - Cont. Protonix - FU KEVIN 2 weeks - Pt seen and examined by Dr. Jane and myself and this note is written on his behalf Ketty Saldaña Feb 27, 2017 12:28
== END 2017-02-27 13:15 | disposition home or self-care (01) | DRG 378 ==
LOC: NEPE 08:25 → NEDA 10:24 → N04B 12:53
PROVIDERS: ADMIT Family Medicine; ATTEND Family Medicine
PROC: 0DB68ZX Excision of Stomach, Via Natural or Artificial Opening Endoscopic, Diagnostic (ICD-10-PCS; principal; 2017-02-24 09:35)
DX: K92.0 Hematemesis (principal); K50.90 Crohn's disease, unspecified, without complications; F10.231 Alcohol dependence with withdrawal delirium; K29.60 Other gastritis without bleeding; R07.89 Other chest pain; G40.909 Epilepsy, unspecified, not intractable, without status epilepticus; Z86.718 Personal history of other venous thrombosis and embolism; I10 Essential (primary) hypertension; K31.9 Disease of stomach and duodenum, unspecified; K46.9 Unspecified abdominal hernia without obstruction or gangrene; K59.00 Constipation, unspecified
CPT/HCPCS: 71010; 74176; 76705; 76937; 80048; 80053; 80175; 80177; 81001; 82728; 83540; 83550; 83605; 83690; 83735; 84100; 84484; 85014; 85018; 85025; 85027; 85610; 85730; 86850; 86900; 86901; 88305; 88312; 93005; 96365; 96368; 96374; 96375; C9113; J0696; J1630; J2060; J2270; J2405; J3411; J7030; J7040; J7120; J7512